=== PATIENT | female | born 2000 | race African-American/Black ===

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

== ENCOUNTER 2022-07-11 18:55 | Emergency (ER) | payer OTHER ==
[2022-07-11 18:59] VITALS: RESP 18
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
[2022-07-11 20:37] VITALS: BP 136/91; PULSE 92; TEMP 97.9
== END 2022-07-11 20:37 | disposition home or self-care (01) ==
LOC: EC 18:55
DX: R04.0 Epistaxis (principal); F32.A Depression, unspecified; F41.9 Anxiety disorder, unspecified; Z79.899 Other long term (current) drug therapy; W51.XXXA Accidental striking against or bumped into by another person, initial encounter
CPT/HCPCS: 99283

== ENCOUNTER 2023-04-16 16:12 | Emergency (ER) | payer OTHER ==
--- NOTE | 2023-04-16 16:31 | ED ---
General Adult HPI - General Source: patient, RN notes reviewed <Rakel Ordaz - Last Filed: 04/16/23 16:41> - General Source: RN notes reviewed, old records reviewed Mode of arrival: ambulatory Limitations: no limitations - History of Present Illness -: days(s) Location: chest, back, pelvis Radiation: back Severity scale (1-10): 2 Quality: burning, stabbing Consistency: intermittent Improves with: none Worsens with: none Associated Symptoms: denies other symptoms Treatments Prior to Arrival: none <Issa Blackwood - Last Filed: 04/25/23 18:49> - General Stated complaint: Back Pain Time Seen by Provider: 04/16/23 16:30 - History of Present Illness Initial comments: Patient is a 22-year-old female presented ER with chief complaint of back pain. She states started 3 days ago and now to her mid back and into her chest. Patient also was endorsing dizziness and shortness of breath. Denies any fevers does endorse chills. No cardiac history. No urinary complaints. No trauma/injuries. (Rakel Ordaz) This is a 22-year-old female to the ER for evaluation of back pain back pain chest pain lower back pain, smoker back pain with shortness of breath cough congestion. No travel history or sick contacts and no trauma. (Issa Blackwood) - Related Data Home Medications Medication Instructions Recorded Confirmed Escitalopram Oxalate [Lexapro] 20 mg PO DAILY 07/11/22 07/11/22 hydrOXYzine HCL [Hydroxyzine HCl] 10 mg PO BID 07/11/22 07/11/22 Allergies Allergy/AdvReac Type Severity Reaction Status Date / Time ibuprofen [From Motrin] Allergy Nausea & Verified 04/16/23 16:42 Vomiting Review of Systems ROS Other: All systems not noted in ROS Statement are negative. <Rakel Ordaz - Last Filed: 04/16/23 16:41> ROS Other: All systems not noted in ROS Statement are negative. <Issa Blackwood - Last Filed: 04/25/23 18:49> ROS Statement: Those systems with pertinent positive or pertinent negative responses have been documented in the HPI. Past Medical History Additional Past Medical History / Comment(s): pcos History of Any Multi-Drug Resistant Organisms: None Reported Additional Past Surgical History / Comment(s): wrist - cyst removed Past Psychological History: Anxiety, Depression Smoking Status: Never smoker Past Alcohol Use History: None Reported Past Drug Use History: None Reported <Rakel Ordaz - Last Filed: 04/16/23 16:41> General Exam <Rakel Ordaz - Last Filed: 04/16/23 16:41> General appearance: alert, in no apparent distress Head exam: Present: atraumatic, normocephalic, normal inspection Eye exam: Present: normal appearance, PERRL, EOMI. Absent: scleral icterus, conjunctival injection, periorbital swelling ENT exam: Present: normal exam, mucous membranes moist Neck exam: Present: normal inspection. Absent: tenderness, meningismus, lymph adenopathy Respiratory exam: Present: normal lung sounds bilaterally. Absent: respiratory distress, wheezes, rales, rhonchi, stridor Cardiovascular Exam: Present: regular rate, normal rhythm, normal heart sounds. Absent: systolic murmur, diastolic murmur, rubs, gallop, clicks GI/Abdominal exam: Present: soft, normal bowel sounds. Absent: distended, tenderness, guarding, rebound, rigid Extremities exam: Present: normal inspection, full ROM, normal capillary refill. Absent: tenderness, pedal edema, joint swelling, calf tenderness Back exam: Present: normal inspection Neurological exam: Present: alert, oriented X3, CN II-XII intact Psychiatric exam: Present: normal affect, normal mood Skin exam: Present: warm, dry, intact, normal color. Absent: rash <Issa Blackwood - Last Filed: 04/25/23 18:49> - General Exam Comments Initial Comments: Visual Physical Exam Vital signs reviewed General: Well-appearing, nontoxic, no acute distress. Head: Normocephalic, atraumatic Eyes: PERRLA, EOMI ENT: Airway patent Chest: Nonlabored breathing Skin: No visual rash, normal skin tone Neuro: Alert and oriented 3 Musculoskeletal: No gross abnormalities (Rakel Ordaz) Course <Issa Blackwood - Last Filed: 04/25/23 18:49> Vital Signs 04/16/23 16:38 Temperature 99.0 F Pulse Rate 86 Respiratory 16 Rate Blood Pressure 130/69 O2 Sat by Pulse 100 Oximetry - Reevaluation(s) Reevaluation #1: Medical records reviewed (Issa Blackwood) Reevaluation #2: Patient symptoms unchanged (Issa Blackwood) Reevaluation #3: Patient informed of results and questions answered (Issa Blackwood) Reevaluation #4: Was pt. sent in by a medical professional or institution (, SOFIYA, HANDBAG STITCHER, urgent care, hospital, or assisted...) When possible be specific @ -no Did you speak to anyone other than the patient for history (EMS, parent, family, police, friend...)? What history was obtained from this source @ -no Did you review nursing and triage notes (agree or disagree)? Why? @ -agree Are old charts reviewed (outside hosp., previous admission, EMS record, old EKG, old radiological studies, urgent care reports/EKG's, assisted records)? Report findings @ -yes Differential Diagnosis (chest pain, altered mental status, abdominal pain women, abdominal pain men, vaginal bleeding, weakness, fever, dyspnea, syncope, headache, dizziness, GI bleed, back pain, seizure, CVA, palpatations, mental health, musculoskeletal)? @ -prior EKG interpreted by me (3pts min.). @ -yes X-rays interpreted by me (1pt min.). @ -yes negative for acute disease CT interpreted by me (1pt min.). @ -no U/S interpreted by me (1pt. min.). @ -no What testing was considered but not performed or refused? (CT, X-rays, U/S, labs)? Why? @ -none What meds were considered but not given or refused? Why? @ -none Did you discuss the management of the patient with other professionals (professionals i.e. , SOFIYA, HANDBAG STITCHER, lab, RT, psych nurse, psych social worker, front desk person, teacher, chief operating officer, case packer and sealer)? Give summary @ -no Was smoking cessation discussed for >3mins.? @ -no Was critical care preformed (if so, how long)? @ -no Were there social determinants of health that impacted care today? How? (Homelessness, low income, unemployed, alcoholism, drug addiction, transportation, low edu. Level, literacy, decrease access to med. care, group home, rehab)? @ -none Was there de-escalation of care discussed even if they declined (Discuss DNR or withdrawal of care, Hospice)? DNR status @ -no What co-morbidities impacted this encounter? (DM, HTN, Smoking, COPD, CAD, Cancer, CVA, ARF, Chemo, Hep., AIDS, mental health diagnosis, sleep apnea, morbid obesity)? @ -none Was patient admitted / discharged? Hospital course, mention meds given and route, prescriptions, significant lab abnormalities, going to OR and other pertinent info. @ - 22 female to ER for evaluation of back pain acute back pain but no cause found. Patient's pain is improved and can be discharged home Discharge Undiagnosed new problem with uncertain prognosis? @ -no Drug Therapy requiring intensive monitoring for toxicity (Heparin, Nitro, Insulin, Cardizem)? @ -no Were any procedures done? @ -no Diagnosis/symptom? @ -Back pain mechanical Acute, or Chronic, or Acute on Chronic? @ -Acute Uncomplicated (without systemic symptoms) or Complicated (systemic symptoms)? @ -Complicated Side effects of treatment? @ -no Exacerbation, Progression, or Severe Exacerbation? @ -exacerbation Poses a threat to life or bodily function? How? (Chest pain, [place], [place], pneumonia, PE, COPD, DKA, ARF, appy, cholecystitis, CVA, Diverticulitis, Homicidal, Suicidal, threat to staff... and all critical care pts) @ -no (Issa Blackwood) Reevaluation #5: Differential Back Pain: Strain, zoster, cauda equina syndrome, epidural abscess, vertebral oste omyelitis, discitis, fracture, subluxation, disc herniation, DJD, spinal stenosis, dissection, AAA, pancreatitis, peptic ulcer disease, pyelonephritis, kidney stone, this is not meant to be an all-inclusive list. (Issa Blackwood) EKG Findings - EKG Comments: EKG Findings:: EKG is sinus 81 PA 136 QRS 32 QTc 399 - EKG Results: EKG: interpreted by ERMD <Issa Blackwood - Last Filed: 04/25/23 18:49> Medical Decision Making <Rakel Ordaz - Last Filed: 04/16/23 16:41> - Radiology Data Radiology results: report reviewed (Chest x-ray is negative for acute disease), image reviewed <Issa Blackwood - Last Filed: 04/25/23 18:49> - Medical Decision Making I performed the quick note portion of the chart. Electronically signed by Rakel Ordaz PA-C (Rakel Ordaz) 22 female to ER for evaluation of back pain acute back pain but no cause found. Patient's pain is improved and can be discharged home (Issa Blackwood) - Lab Data Lab Results 04/16/23 04/16/23 04/16/23 Range/Units 16:44 16:44 16:45 Urine Color Red Urine Appearance Cloudy H (Clear) Urine RBC >182 H (0-5) /hpf Urine HCG, Qual Not Detected (Not Detectd) Influenza Type A (PCR) Not Detected (Not Detectd) Influenza Type B (PCR) Not Detected (Not Detectd) RSV (PCR) Not Detected (Not Detectd) SARS-CoV-2 (PCR) Not Detected (Not Detectd) Disposition <Rakel Ordaz - Last Filed: 04/16/23 16:41> Is patient prescribed a controlled substance at d/c from ED?: No Time of Disposition: 20:15 <Issa Blackwood - Last Filed: 04/25/23 18:49> Clinical Impression: Strain of lumbar region, Mid back pain, Mechanical back pain Disposition: HOME SELF-CARE Condition: Good Instructions (If sedation given, give patient instructions): Acute Low Back Pain (ED) Referrals: Elidia Basilio MD [Primary Care Provider] - 1-2 days
[2023-04-16 17:04] VITALS: BP 130/69; PULSE 86; RESP 16; TEMP 99
--- NOTE | 2023-04-16 17:23 | XR ---
EXAMINATION TYPE: XR chest 2V DATE OF EXAM: 04/16/2023 5:01 PM CLINICAL INDICATION:Female, 22 years old with history of chest pain; [facility] COMPARISON: Chest radiographs from 09/21/2018. TECHNIQUE: XR chest 2V Frontal and lateral views of the chest. FINDINGS: Lungs/Pleura: There is no evidence of pleural effusion, focal consolidation, or pneumothorax. Pulmonary vascularity: Unremarkable. Heart/mediastinum: Cardiomediastinal silhouette is unremarkable. Musculoskeletal: No acute osseous pathology. Other findings: None IMPRESSION: No acute cardiopulmonary disease/process.
[2023-04-16] MEDS: traMADol 50 MG TAB PO STA (20:41)
[2023-04-16] MEDS: traMADol 50 MG STARTER PACK 3 TAB BTL PO STA (20:42)
[2023-04-16] MEDS: KETOROLAC 15 MG/ML 1 ML VIAL IM STA (20:44)
[2023-04-16 20:56] LABS: Appearance,Urine Cloudy (Clear); Color,Urine Red
[2023-04-16 21:33] LABS: RBC,Urine >182 /hpf (0-5)
== END 2023-04-16 20:53 | disposition home or self-care (01) ==
LOC: EC 16:12
DX: S39.012A Strain of muscle, fascia and tendon of lower back, initial encounter (principal); M54.6 Pain in thoracic spine; F32.A Depression, unspecified; F41.9 Anxiety disorder, unspecified; Z20.822 Contact with and (suspected) exposure to COVID-19; Z88.6 Allergy status to analgesic agent; Z79.899 Other long term (current) drug therapy; X58.XXXA Exposure to other specified factors, initial encounter
CPT/HCPCS: 93005; 81001; 81025; 87636; 71046; 99284; 96372; J1885

== ENCOUNTER 2023-06-01 18:39 | Inpatient (IN) | payer OTHER ==
[2023-06-01] MEDS ORDERED: VANCOMYCIN IV PER PHARMACY 1 EACH MISC MISCELLANE PRN (19:05)
--- NOTE | 2023-06-01 19:05 | ED ---
Skin/Abscess/FB HPI - General Chief complaint: Back Pain/Injury Stated complaint: Back Pain Time Seen by Provider: 06/01/23 18:50 Source: patient, EMS, RN notes reviewed, old records reviewed Mode of arrival: EMS Limitations: no limitations - History of Present Illness Initial comments: This is a 22-year-old female to the ER for evaluation today. Patient notes today for severe back pain left-sided back pain and severe tenderness, patient's pain has been increasing for a few days now with a low fever. Patient does have polycystic ovarian syndrome no diabetes. No prior history of injury, no medical history and takes no medications MD complaint: rash, abscess/boil -: days(s) Tetanus Up to Date: yes Location: back Severity: moderate Severity scale (1-10): 7 Quality: sharp Consistency: constant Improves with: none Worsens with: none Treatments Prior to Arrival: none - Related Data Home Medications Medication Instructions Recorded Confirmed Acetaminophen Tab [Tylenol Tab] 1,000 mg PO Q6HR PRN 06/01/23 06/01/23 Acetaminophen/Pamabrom [Midol 1 - 2 tab PO Q6H PRN 06/01/23 06/01/23 Caplet] Sertraline [Zoloft] 50 mg PO HS 06/01/23 06/01/23 metFORMIN HCL [Glucophage] 500 mg PO BID 06/01/23 06/01/23 Allergies Allergy/AdvReac Type Severity Reaction Status Date / Time ibuprofen [From Motrin] AdvReac Nausea & Verified 06/01/23 19:45 Vomiting Review of Systems ROS Statement: Those systems with pertinent positive or pertinent negative responses have been documented in the HPI. ROS Other: All systems not noted in ROS Statement are negative. Past Medical History Past Medical History: Renal Disease, Thyroid Disorder Additional Past Medical History / Comment(s): pcos, hypothyroid History of Any Multi-Drug Resistant Organisms: None Reported Additional Past Surgical History / Comment(s): wrist - cyst removed Past Psychological History: Anxiety, Depression Smoking Status: Never smoker Past Alcohol Use History: None Reported Past Drug Use History: None Reported General Exam Limitations: no limitations General appearance: alert, in no apparent distress Head exam: Present: atraumatic, normocephalic, normal inspection Eye exam: Present: normal appearance, PERRL, EOMI. Absent: scleral icterus, conjunctival injection, periorbital swelling ENT exam: Present: normal exam, mucous membranes moist Neck exam: Present: normal inspection. Absent: tenderness, meningismus, lymphadenopathy Respiratory exam: Present: normal lung sounds bilaterally. Absent: respiratory distress, wheezes, rales, rhonchi, stridor Cardiovascular Exam: Present: regular rate, normal rhythm, normal heart sounds. Absent: systolic murmur, diastolic murmur, rubs, gallop, clicks GI/Abdominal exam: Present: soft, normal bowel sounds. Absent: distended, tenderness, guarding, rebound, rigid Extremities exam: Present: normal inspection, full ROM, normal capillary refill. Absent: tenderness, pedal edema, joint swelling, calf tenderness Back exam: Present: normal inspection Neurological exam: Present: alert, oriented X3, CN II-XII intact Psychiatric exam: Present: normal affect, normal mood Skin exam: Present: warm, dry, intact, normal color. Absent: rash Course Vital Signs 06/01/23 06/01/23 06/01/23 18:40 21:31 22:30 Temperature 98.9 F Pulse Rate 94 90 109 H Respiratory 18 18 18 Rate Blood Pressure 134/80 112/68 128/69 O2 Sat by Pulse 100 94 L 96 Oximetry 06/02/23 06/02/23 06/02/23 02:31 04:35 06:12 Temperature Pulse Rate 91 103 H 107 H Respiratory 16 16 18 Rate Blood Pressure 119/82 112/66 119/80 O2 Sat by Pulse 97 99 98 Oximetry 06/02/23 06/02/23 06/02/23 07:37 07:40 07:50 Temperature Pulse Rate 100 Respiratory 16 Rate Blood Pressure 101/88 131/81 131/81 O2 Sat by Pulse 100 99 94 L Oximetry - Reevaluation(s) Reevaluation #1: 06/01/23 19:24 Medical record is reviewed Reevaluation #2: 06/01/23 19:25 Patient symptoms are improved Reevaluation #3: 06/01/23 19:25 Patient informed of results and questions answered Reevaluation #4: Was pt. sent in by a medical professional or institution (, PA, COAL TRIMMER, urgent care, hospital, or [facility]...) When possible be specific @ -no Did you speak to anyone other than the patient for history (EMS, parent, family, police, friend...)? What history was obtained from this source @ -no Did you review nursing and triage notes (agree or disagree)? Why? @ -agree Are old charts reviewed (outside hosp., previous admission, EMS record, old EKG, old radiological studies, urgent care reports/EKG's, [facility] records)? Report findings @ -yes Differential Diagnosis (chest pain, altered mental status, abdominal pain women, abdominal pain men, vaginal bleeding, weakness, fever, dyspnea, syncope, headache, dizziness, GI bleed, back pain, seizure, CVA, palpatations, mental health, musculoskeletal)? @ -prior EKG interpreted by me (3pts min.). @ -no X-rays interpreted by me (1pt min.). @ -no CT interpreted by me (1pt min.). @ -Yes back cellulitis with significant developing abscess U/S interpreted by me (1pt. min.). @ -no What testing was considered but not performed or refused? (CT, X-rays, U/S, labs)? Why? @ -none What meds were considered but not given or refused? Why? @ -none Did you discuss the management of the patient with other professionals (professionals i.e. , PA, COAL TRIMMER, lab, RT, psych nurse, social service technician, highway inspector, teacher, space operations officer, welfare case worker)? Give summary @ -no Was smoking cessation discussed for >3mins.? @ -no Was critical care preformed (if so, how long)? @ -no Were there social determinants of health that impacted care today? How? (Homelessness, low income, unemployed, alcoholism, drug addiction, transportation, low edu. Level, literacy, decrease access to med. care, retirement, rehab)? @ -none Was there de-escalation of care discussed even if they declined (Discuss DNR or withdrawal of care, Hospice)? DNR status @ -no What co-morbidities impacted this encounter? (DM, HTN, Smoking, COPD, CAD, Cancer, CVA, ARF, Chemo, Hep., AIDS, mental health diagnosis, sleep apnea, morbid obesity)? @ -none Was patient admitted / discharged? Hospital course, mention meds given and route, prescriptions, significant lab abnormalities, going to OR and other pertinent info. @ - 22 female with significant back abscess, significant back cellulitis. Patient will need to be admitted for IV antibiotics and surgical evaluation regarding developing abscess Admitted Undiagnosed new problem with uncertain prognosis? @ -no Drug Therapy requiring intensive monitoring for toxicity (Heparin, Nitro, Insulin, Cardizem)? @ -no Were any procedures done? @ -no Diagnosis/symptom? @ -Back cellulitis significant with developing abscess Acute, or Chronic, or Acute on Chronic? @ -Acute Uncomplicated (without systemic symptoms) or Complicated (systemic symptoms)? @ -Complicated Side effects of treatment? @ -no Exacerbation, Progression, or Severe Exacerbation? @ -exacerbation Poses a threat to life or bodily function? How? (Chest pain, [place], [place], pneumonia, PE, COPD, DKA, ARF, appy, cholecystitis, CVA, Diverticulitis, Homicidal, Suicidal, threat to staff... and all critical care pts) @ -yes with significant infection Reevaluation #5: Differential Back Pain: Strain, zoster, cauda equina syndrome, epidural abscess, vertebral osteomyelitis, discitis, fracture, subluxation, disc herniation, DJD, spinal stenosis, dissection, AAA, pancreatitis, peptic ulcer disease, pyelonephritis, kidney stone, this is not meant to be an all-inclusive list. - Consultations Consultation #1: Spoke with [facility] who agreed to admit this patient Medical Decision Making - Medical Decision Making 22 female with significant back abscess, significant back cellulitis. With significant developing abscess around the area of cellulitis and pain - Lab Data Result diagrams: 06/05/23 05:50 06/05/23 05:50 Lab Results 06/01/23 06/01/23 06/01/23 Range/Units 19:24 19:24 19:24 WBC 8.9 (4.0-11.0) k/uL RBC 5.16 (3.80-5.40) m/uL Hgb 11.1 L (11.4-16.0) gm/dL Hct 35.6 (34.0-46.0) % MCV 68.9 L (80.0-100.0) fL MCH 21.4 L (25.0-35.0) pg MCHC 31.1 (31.0-37.0) g/dL RDW 14.6 (11.5-15.5) % Plt Count 377 (150-450) k/uL MPV 6.6 Neutrophils % 75 % Lymphocytes % 18 % Monocytes % 4 % Eosinophils % 2 % Basophils % 0 % Neutrophils # 6.7 (1.3-7.7) k/uL Lymphocytes # 1.6 (1.0-4.8) k/uL Monocytes # 0.3 (0-1.0) k/uL Eosinophils # 0.2 (0-0.7) k/uL Basophils # 0.0 (0-0.2) k/uL Microcytosis Marked Sodium 137 (137-145) mmol/L Potassium 4.0 (3.5-5.1) mmol/L Chloride 105 (98-107) mmol/L Carbon Dioxide 25 (22-30) mmol/L Anion Gap 7 mmol/L BUN 8 (7-17) mg/dL Creatinine 0.59 (0.52-1.04) mg/dL Est GFR (CKD-EPI)AfAm >90 (>60 ml/min/1.73 sqM) Est GFR (CKD-EPI)NonAf >90 (>60 ml/min/1.73 sqM) Glucose 95 (74-99) mg/dL Plasma Lactic Acid Konstantin 1.1 (0.7-2.0) mmol/L Calcium 9.2 (8.4-10.2) mg/dL Phosphorus 3.5 (2.5-4.5) mg/dL Magnesium 1.5 L (1.6-2.3) mg/dL Total Bilirubin 0.7 (0.2-1.3) mg/dL AST 18 (14-36) U/L ALT 22 (4-34) U/L Alkaline Phosphatase 90 (38-126) U/L Total Protein 7.0 (6.3-8.2) g/dL Albumin 3.8 (3.5-5.0) g/dL - Radiology Data Radiology results: report reviewed (CT abdpelvis positive for cellulitis w abscess), image reviewed Disposition Clinical Impression: Mid back pain, Cellulitis of back, Back abscess Disposition: ADMITTED IP TO THIS [facility] Condition: Fair Is patient prescribed a controlled substance at d/c from ED?: No
[2023-06-01 19:55] LABS: Basophils % (A) 0 %; Eosinophils # (A) 0.2 k/uL (0-0.7); Eosinophils % (A) 2 %; HCT 35.6 % (34.0-46.0); HGB 11.1 gm/dL (11.4-16.0); Lymphocytes # (A) 1.6 k/uL (1.0-4.8); Lymphocytes % (A) 18 %; MCH 21.4 pg (25.0-35.0); MCHC 31.1 g/dL (31.0-37.0); MCV 68.9 fL (80.0-100.0); Mean Platelet Volume 6.6; Microcytosis Marked; Monocytes # (A) 0.3 k/uL (0-1.0); Monocytes % (A) 4 %; Neutrophils # (A) 6.7 k/uL (1.3-7.7); Neutrophils % (A) 75 %; Platelet Count 377 k/uL (150-450); RBC 5.16 m/uL (3.80-5.40); RDW 14.6 % (11.5-15.5); WBC 8.9 k/uL (4.0-11.0)
[2023-06-01 20:08] LABS: ALT 22 U/L (4-34); AST 18 U/L (14-36); African American GFR (CKD) >90 (>60 ml/min/1.73 sqM); Albumin 3.8 g/dL (3.5-5.0); Alkaline Phosphatase 90 U/L (38-126); Anion Gap 7 mmol/L; Blood Urea Nitrogen 8 mg/dL (7-17); Calcium 9.2 mg/dL (8.4-10.2); Carbon Dioxide 25 mmol/L (22-30); Chloride 105 mmol/L (98-107); Glucose 95 mg/dL (74-99); Magnesium 1.5 mg/dL (1.6-2.3); Non-African American GFR(CKD) >90 (>60 ml/min/1.73 sqM); Phosphorus 3.5 mg/dL (2.5-4.5); Sodium 137 mmol/L (137-145); Total Bilirubin 0.7 mg/dL (0.2-1.3)
[2023-06-01] MEDS: SODIUM CHLORIDE 0.9% 1,000 ML IV STA ×2 (20:08)
--- NOTE | 2023-06-01 21:26 | CT ---
EXAMINATION TYPE: CT abdomen pelvis w con CT DLP: 2354.1 mGycm, Automated exposure control for dose reduction was used. DATE OF EXAM: 06/01/2023 8:41 PM COMPARISON: None. CLINICAL INDICATION:Female, 22 years old with history of pain; WOUND ON LEFT LATERAL SIDE TECHNIQUE: Axial CT of the abdomen and pelvis. Sagittal and coronal reformats were created on a [employer]uklik workstation. Contrast used:100ml mL of Isovue 300 with IV Contrast, (none if empty) Oral contrast used: without Oral Contrast (none if empty) FINDINGS: LOWER CHEST: Clear lung bases. Heart size upper normal. ABDOMEN LIVER: Unremarkable GALLBLADDER AND BILE DUCTS: A 1.2 cm calcified gallstone. No gallbladder distention or inflammation. Nondilated biliary tree. PANCREAS: Unremarkable. SPLEEN: Unremarkable. ADRENAL GLANDS: Unremarkable. KIDNEYS AND URETERS: Kidneys enhance symmetrically. No evidence of hydronephrosis or visible renal ca lculus. The ureters are unremarkable. PELVIS BLADDER: Unremarkable REPRODUCTIVE: Uterus and presumed ovaries appear unremarkable by CT. Uterus is anteflexed and deviate s slightly into the left pelvis. ABDOMEN & PELVIS STOMACH AND BOWEL: Stomach and small bowel are nondistended, no evidence of obstruction. Normal pita endix. [id number] stool throughout the colon without acute process seen. PERITONEUM/RETROPERITONEUM: No evidence of pneumoperitoneum or free fluid. VASCULATURE: Aorta and major branches are grossly unremarkable. No AAA. Portal vein and tributaries appear enhancing. LYMPH NODES: No enlarged lymph nodes. SOFT TISSUE/ABDOMINAL WALL: In the left inferior chest posterolaterally, there is skin induration sug gesting cellulitis, with mild underlying subcutaneous fat stranding and a focal 7.6 x 3.8 cm axial by 3.1 cm craniocaudal structure which appears relatively homogeneous and shows higher than simple flui d attenuation contents, about 23 Hounsfield units. No visible gas is evident. Small broad-based fat c ontaining umbilical region hernia. MUSCULOSKELETAL: Osseous structures are unremarkable. IMPRESSION: * In the left inferior chest wall posterolaterally, findings suggest edema and cellulitis with a sub cutaneous 7.6 x 3.8x 3.1 cm structure suggestive of phlegmon or liquefying abscess. * Cholelithiasis.
[2023-06-01] MEDS ORDERED: ONDANSETRON 4 MG/2 ML VIAL IVP PRN (21:28)
[2023-06-01] MEDS ORDERED: NALOXONE 0.4 MG/ML 1 ML VIAL IV PRN (21:28)
[2023-06-01] MEDS: HYDROmorphone 1 MG/ML 1 ML SYRINGE IVP PRN (22:23)
[2023-06-01] MEDS: VANCOMYCIN 2,000 MG in SODIUM CHLORIDE 0.9% 500 ML 500 ML IVPB ONE (22:26)
[2023-06-02] MEDS: SODIUM CHLORIDE 0.9% 1,000 ML IV SCH (00:52)
[2023-06-02] MEDS ORDERED: DEXTROSE 50% SYRINGE 50 ML IVP PRN ×2 (04:07)
[2023-06-02 04:40] LABS: Glucose,Whole Blood 98 mg/dL (70-110)
[2023-06-02] MEDS: VANCOMYCIN 2,000 MG in SODIUM CHLORIDE 0.9% 500 ML 500 ML IVPB SCH (06:45)
[2023-06-02] MEDS: INSULIN ASPART (NovoLOG) 100 UNIT/ML VIAL SQ SCH (07:22)
[2023-06-02 08:47] LABS: Basophils % (A) 0 %; Eosinophils % (A) 0 %; HCT 36.1 % (34.0-46.0); HGB 10.7 gm/dL (11.4-16.0); Hypochromasia Marked; Lymphocytes # (A) 1.5 k/uL (1.0-4.8); Lymphocytes % (A) 16 %; MCH 21.3 pg (25.0-35.0); MCHC 29.6 g/dL (31.0-37.0); MCV 71.8 fL (80.0-100.0); Mean Platelet Volume 6.9; Microcytosis Moderate; Monocytes # (A) 0.5 k/uL (0-1.0); Monocytes % (A) 5 %; Neutrophils # (A) 7.2 k/uL (1.3-7.7); Neutrophils % (A) 77 %; Platelet Count 363 k/uL (150-450); RBC 5.03 m/uL (3.80-5.40); RDW 14.4 % (11.5-15.5); WBC 9.4 k/uL (4.0-11.0)
[2023-06-02] MEDS: PANTOPRAZOLE 40 MG/10 ML VIAL IVP SCH (08:54)
[2023-06-02 09:14] LABS: ALT 20 U/L (4-34); AST 17 U/L (14-36); African American GFR (CKD) >90 (>60 ml/min/1.73 sqM); Albumin 3.5 g/dL (3.5-5.0); Alkaline Phosphatase 84 U/L (38-126); Anion Gap 10 mmol/L; Blood Urea Nitrogen 7 mg/dL (7-17); Calcium 8.7 mg/dL (8.4-10.2); Carbon Dioxide 20 mmol/L (22-30); Chloride 105 mmol/L (98-107); Glucose 96 mg/dL (74-99); Magnesium 1.6 mg/dL (1.6-2.3); Non-African American GFR(CKD) >90 (>60 ml/min/1.73 sqM); Phosphorus 3.6 mg/dL (2.5-4.5); Sodium 135 mmol/L (137-145); Total Bilirubin 0.6 mg/dL (0.2-1.3); Total Protein 6.5 g/dL (6.3-8.2)
--- NOTE | 2023-06-02 10:30 | P.HPIM ---
History of Present Illness this is a pleasant 22 years old -[place] female with no significant past medical history. Presents because of skin lesion in the left lower back started since last Wednesday about 3-4 days ago, as per patient is started on small area and slowly get bigger it's painful with pain radiating to her lower extremity, she rates the pain at 9/10 and shooting pain increased by movement Associated with mild headache and dizziness but no weakness or numbness No change in urine or bowel habits, no diarrhea vomiting or abdominal pain. No dysuria or urgency. No weakness or numbness. Patient denies trauma, no buttock bites as per patient. Patient denies to me any previous history of IV drug abuse, any other substance abuse. She denies smoking alcohol as well. Patient is afebrile and other labs look stable.she is moderately tachycardic ago around 100 100s and 7 Hemoglobin is 10.7 and WBC 9.4 BMP and liver enzymes were unremarkable HCG is not detected. Patient has CT of the abdomen and pelvis on left chest wall abscess 7.63.83.1 cm with surrounding cellulitis Patient started on IV vancomycin and normal saline 75 mL/h She was admitted for surgery team consult Review of Systems Review of systems CONSTITUTIONAL: No fever, no malaise, no fatigue. HEENT: No recent visual problems or hearing problems. Denied any sore throat. CARDIOVASCULAR: No orthopnea, PND, no palpitations, no syncope. PULMONARY: No shortness of breath, no cough, no hemoptysis. GASTROINTESTINAL: No diarrhea, no nausea, no vomiting, no abdominal pain. Normoactive bowel sounds. NEUROLOGICAL: No headaches, no weakness, no numbness. HEMATOLOGICAL: Denies any bleeding or petechiae. GENITOURINARY: Denies any burning micturition, frequency, or urgency. MUSCULOSKELETAL/RHEUMATOLOGICAL: Denies any joint pain, swelling, or any muscle pain. ENDOCRINE: Denies any polyuria or polydipsia. Past Medical History Past Medical History: Renal Disease, Thyroid Disorder Additional Past Medical History / Comment(s): pcos, hypothyroid History of Any Multi-Drug Resistant Organisms: None Reported Additional Past Surgical History / Comment(s): wrist - cyst removed Past Psychological History: Anxiety, Depression Smoking Status: Never smoker Past Alcohol Use History: None Reported Past Drug Use History: None Reported Medications and Allergies Home Medications Medication Instructions Recorded Confirmed Type Acetaminophen Tab [Tylenol Tab] 1,000 mg PO Q6HR PRN 06/01/23 06/01/23 History Acetaminophen/Pamabrom [Midol 1 - 2 tab PO Q6H PRN 06/01/23 06/01/23 History Caplet] Sertraline [Zoloft] 50 mg PO HS 06/01/23 06/01/23 History metFORMIN HCL [Glucophage] 500 mg PO BID 06/01/23 06/01/23 History Allergies Allergy/AdvReac Type Severity Reaction Status Date / Time ibuprofen [From Motrin] AdvReac Nausea & Verified 06/01/23 19:45 Vomiting Physical Exam Vitals: Vital Signs Temp Pulse Resp BP Pulse Ox 06/02/23 07:50 100 16 131/81 94 L 06/02/23 07:40 131/81 99 06/02/23 07:37 101/88 100 06/02/23 06:12 107 H 18 119/80 98 06/02/23 04:35 103 H 16 112/66 99 06/02/23 02:31 91 16 119/82 97 06/01/23 22:30 109 H 18 128/69 96 06/01/23 21:31 90 18 112/68 94 L 06/01/23 18:40 98.9 F 94 18 134/80 100 Intake and Output 06/01/23 06/02/23 06/02/23 22:59 06:59 14:59 Other: Weight 133.81 kg -GENERAL: The patient is alert and oriented x3, not in any acute distress. obese. HEENT: Pupils are round and equally reacting to light. EOMI. No scleral icterus. No conjunctival pallor. Normocephalic, atraumatic. No pharyngeal erythema. No thyromegaly. CARDIOVASCULAR: S1 and S2 present. No murmurs, rubs, or gallops. -PULMONARY: Chest is clear to auscultation, no wheezing , no crackles. left lower chest wall abscess with surrounding cellulitis ABDOMEN: Soft, nontender, nondistended, normoactive bowel sounds. No palpable organomegaly. MUSCULOSKELETAL: No joint swelling or deformity. EXTREMITIES: No cyanosis, clubbing, or pedal edema. NEUROLOGICAL: Gross neurological examination did not reveal any focal deficits. SKIN: No rashes. no petechiae. Results CBC & Chem 7: 06/02/23 07:57 06/02/23 07:57 Labs: Abnormal Lab Results - Last 24 Hours (Table) 06/01/23 06/01/23 06/02/23 Range/Units 19:24 19:24 07:57 Hgb 11.1 L 10.7 L (11.4-16.0) gm/dL MCV 68.9 L 71.8 L (80.0-100.0) fL MCH 21.4 L 21.3 L (25.0-35.0) pg MCHC 29.6 L (31.0-37.0) g/dL Sodium (137-145) mmol/L Carbon Dioxide (22-30) mmol/L Magnesium 1.5 L (1.6-2.3) mg/dL 06/02/23 Range/Units 07:57 Hgb (11.4-16.0) gm/dL MCV (80.0-100.0) fL MCH (25.0-35.0) pg MCHC (31.0-37.0) g/dL Sodium 135 L (137-145) mmol/L Carbon Dioxide 20 L (22-30) mmol/L Magnesium (1.6-2.3) mg/dL Assessment and Plan Assessment: left lowerChest wall abscess posteriorly with surrounding soft tissue cellulitis Obesity Plan: continue with IV vancomycin Continue with normal saline Surgery team consult Pain management Follow-up culture results Labs and medication were reviewed.. Continue same treatment. Continue with symptomatic treatment. Resume home medication. Monitor labs and vitals. DVT and GI prophylaxis. Further recommendations as per clinical course of the patient DVT prophylaxis: Subcutaneous heparin GI Prophylaxis: Pepcid
[2023-06-02 12:01] LABS: Glucose,Whole Blood 89 mg/dL (70-110)
--- NOTE | 2023-06-02 13:44 | P.GSCN ---
History of Present Illness Consult date: 06/02/23 History of present illness: CHIEF COMPLAINT: Back pain HISTORY OF PRESENT ILLNESS: This is a 22-year-old female who presented with left-sided back pain x 3 days. Patient reported swelling and increased tenderness. She denies any drainage from the area. Denies any prior history of abscesses. Denies any diabetes history. She had a CT scan of the abdomen and pelvis that had shown left inferior chest wall posterior laterally findings suggestive of edema and cellulitis with subcutaneous 7.6 x 3.8 x 3.1 cm structure suggestive of phlegmon or liquefying abscess. Patient is mildly tachycardic. PAST MEDICAL HISTORY: Renal Disease, Thyroid Disorder, polycystic ovarian syndrome, anxiety and depression PAST SURGICAL HISTORY: See below MEDICATIONS: See below ALLERGIES: See below SOCIAL HISTORY: No illicit drug use. REVIEW OF SYSTEMS: CONSTITUTIONAL: Denies fever or chills. HEENT: Denies blurred vision, vision changes, or eye pain. Denies hemoptysis CARDIOVASCULAR: Denies chest pain or pressure. RESPIRATORY: No shortness of breath. GASTROINTESTINAL: See HPI for pertinent findings HEMATOLOGIC: Denies bleeding disorders. GENITOURINARY: Denies any blood in urine or increased urinary frequency. SKIN: Denies pruitis. Denies rash. PHYSICAL EXAM: VITAL SIGNS: Reviewed GENERAL: Well-developed in no acute distress. ABDOMEN: Soft. Obese. Nondistended. Nontender NEUROLOGIC: Alert and oriented. Cranial nerves II through XII grossly intact. Skin: Left side of back at skin fold with evidence of induration erythema and a small area of crusting. No active drainage at this time. Area is tender with palpation. LABORATORY DATA: WBC 9.4 Hgb 10.7 platelets 363 Sodium is 135 potassium 4.0 creatinine 0.54 Magnesium 1.6 Lactic acid 1.1 IMAGING: CT scan abdomen pelvis in the left inferior chest wall posterolaterally findings shows edema and cellulitis with a subcutaneous 7.6 x 3.8 x 3.1 cm structure suggestive of phlegmon or liquefying abscess. Cholelithiasis. ASSESSMENT: 1. Cellulitis of the left side of back PLAN: -No surgical intervention planned -Continue antibiotics -Continue to monitor -Apply warm compresses Thank you for this consultation Physician Towboat Engineer note has been reviewed by physician. Signing provider agrees with the documented findings, assessment, and plan of care. Past Medical History Past Medical History: Renal Disease, Thyroid Disorder Additional Past Medical History / Comment(s): pcos, hypothyroid History of Any Multi-Drug Resistant Organisms: None Reported Additional Past Surgical History / Comment(s): wrist - cyst removed Past Psychological History: Anxiety, Depression Smoking Status: Never smoker Past Alcohol Use History: None Reported Past Drug Use History: None Reported Medications and Allergies Home Medications Medication Instructions Recorded Confirmed Type Acetaminophen Tab [Tylenol Tab] 1,000 mg PO Q6HR PRN 06/01/23 06/01/23 History Acetaminophen/Pamabrom [Midol 1 - 2 tab PO Q6H PRN 06/01/23 06/01/23 History Caplet] Sertraline [Zoloft] 50 mg PO HS 06/01/23 06/01/23 History metFORMIN HCL [Glucophage] 500 mg PO BID 06/01/23 06/01/23 History Allergies Allergy/AdvReac Type Severity Reaction Status Date / Time ibuprofen [From Motrin] AdvReac Nausea & Verified 06/01/23 19:45 Vomiting Surgical - Exam Vital Signs Temp Pulse Resp BP Pulse Ox 98.9 F 94 18 134/80 100 06/01/23 18:40 06/01/23 18:40 06/01/23 18:40 06/01/23 18:40 06/01/23 18:40 Results - Labs 06/02/23 07:57 06/02/23 07:57 Abnormal Lab Results - Last 24 Hours (Table) 06/01/23 06/01/23 06/02/23 Range/Units 19:24 19:24 07:57 Hgb 11.1 L 10.7 L (11.4-16.0) gm/dL MCV 68.9 L 71.8 L (80.0-100.0) fL MCH 21.4 L 21.3 L (25.0-35.0) pg MCHC 29.6 L (31.0-37.0) g/dL Sodium (137-145) mmol/L Carbon Dioxide (22-30) mmol/L Magnesium 1.5 L (1.6-2.3) mg/dL 06/02/23 Range/Units 07:57 Hgb (11.4-16.0) gm/dL MCV (80.0-100.0) fL MCH (25.0-35.0) pg MCHC (31.0-37.0) g/dL Sodium 135 L (137-145) mmol/L Carbon Dioxide 20 L (22-30) mmol/L Magnesium (1.6-2.3) mg/dL Diabetes panel 06/01/23 06/02/23 Range/Units 19: 07:57 Sodium 137 135 L (137-145) mmol/L Potassium 4.0 4.0 (3.5-5.1) mmol/L Chloride 105 105 (98-107) mmol/L Carbon Dioxide 25 20 L (22-30) mmol/L BUN 8 7 (7-17) mg/dL Creatinine 0.59 0.54 (0.52-1.04) mg/dL Glucose 95 96 (74-99) mg/dL Calcium 9.2 8.7 (8.4-10.2) mg/dL AST 18 17 (14-36) U/L ALT 22 20 (4-34) U/L Alkaline Phosphatase 90 84 (38-126) U/L Total Protein 7.0 6.5 (6.3-8.2) g/dL Albumin 3.8 3.5 (3.5-5.0) g/dL Calcium panel 06/01/23 06/02/23 Range/Units 19: 07:57 Calcium 9.2 8.7 (8.4-10.2) mg/dL Phosphorus 3.5 3.6 (2.5-4.5) mg/dL Albumin 3.8 3.5 (3.5-5.0) g/dL Pituitary panel 06/01/23 06/02/23 Range/Units 19:24 07:57 Sodium 137 135 L (137-145) mmol/L Potassium 4.0 4.0 (3.5-5.1) mmol/L Chloride 105 105 (98-107) mmol/L Carbon Dioxide 25 20 L (22-30) mmol/L BUN 8 7 (7-17) mg/dL Creatinine 0.59 0.54 (0.52-1.04) mg/dL Glucose 95 96 (74-99) mg/dL Calcium 9.2 8.7 (8.4-10.2) mg/dL Adrenal panel 06/01/23 06/02/23 Range/Units 19:24 07:57 Sodium 137 135 L (137-145) mmol/L Potassium 4.0 4.0 (3.5-5.1) mmol/L Chloride 105 105 (98-107) mmol/L Carbon Dioxide 25 20 L (22-30) mmol/L BUN 8 7 (7-17) mg/dL Creatinine 0.59 0.54 (0.52-1.04) mg/dL Glucose 95 96 (74-99) mg/dL Calcium 9.2 8.7 (8.4-10.2) mg/dL Total Bilirubin 0.7 0.6 (0.2-1.3) mg/dL AST 18 17 (14-36) U/L ALT 22 20 (4-34) U/L Alkaline Phosphatase 90 84 (38-126) U/L Total Protein 7.0 6.5 (6.3-8.2) g/dL Albumin 3.8 3.5 (3.5-5.0) g/dL
[2023-06-02 17:19] LABS: Glucose,Whole Blood 89 mg/dL (70-110)
[2023-06-02] MEDS: HEPARIN SODIUM,PORCINE 5,000 UNIT/ML 1 ML VIAL SQ SCH (20:03)
[2023-06-02] MEDS: FAMOTIDINE 20 MG/2 ML VIAL IV SCH (20:03)
[2023-06-02] MEDS: SERTRALINE 50 MG TAB PO SCH (20:04)
[2023-06-02 21:26] LABS: Glucose,Whole Blood 104 mg/dL (70-110)
[2023-06-02] MEDS: ACETAMINOPHEN TAB 500 MG TAB PO PRN (23:10)
[2023-06-02] MEDS: KETOROLAC 15 MG/ML 1 ML VIAL IVP PRN (23:11)
[2023-06-03] MEDS ORDERED: KETOROLAC 15 MG/ML 1 ML VIAL IVP SCH
[2023-06-03] MEDS: ONDANSETRON 4 MG/2 ML VIAL IVP PRN (00:37)
[2023-06-03 05:46] LABS: Glucose,Whole Blood 94 mg/dL (70-110)
--- NOTE | 2023-06-03 09:56 | P.PN ---
Subjective this is a pleasant 22 years old -[place] female with no significant past medical history. Presents because of skin lesion in the left lower back started since last Wednesday about 3-4 days ago, as per patient is started on small area and slowly get bigger it's painful with pain radiating to her lower extremity, she rates the pain at 9/10 and shooting pain increased by movement Associated with mild headache and dizziness but no weakness or numbness No change in urine or bowel habits, no diarrhea vomiting or abdominal pain. No dysuria or urgency. No weakness or numbness. Patient denies trauma, no buttock bites as per patient. Patient denies to me any previous history of IV drug abuse, any other substance abuse. She denies smoking alcohol as well. Patient is afebrile and other labs look stable.she is moderately tachycardic ago around 100 100s and 7 Hemoglobin is 10.7 and WBC 9.4 BMP and liver enzymes were unremarkable HCG is not detected. Patient has CT of the abdomen and pelvis on left chest wall abscess 7.63.83.1 cm with surrounding cellulitis Patient started on IV vancomycin and normal saline 75 mL/h She was admitted for surgery team consult 06/03/2023 Patient lower back abscess opened spontaneously today at 2 spots, there was a lot of draining of purulent material, the area looks somewhat tender to touch with surrounding cellulitis, we will send for wound culture from her purulent discharge Case was discussed with surgery team Currently she is covered with IV vancomycin and normal saline 75 mL/h She is still tachycardic but slightly better Repeat labs from today are still pending, we will follow-up Discussed with staff as well Objective - Vital Signs Vital signs: Vital Signs Temp 98.8 F 06/03/23 06:55 Pulse 79 06/03/23 06:55 Resp 16 06/03/23 06:55 BP 112/70 06/03/23 06:55 Pulse Ox 98 06/03/23 06:55 FiO2 Intake & Output 06/02/23 06/03/23 06/03/23 18:59 06:59 18:59 Intake Total 800 2021.50 Balance 800 2021.50 Intake: Intake, IV Titration 1062.50 Amount Sodium Chloride 0.9% 1, 562.50 000 ml @ 75 mls/hr IV . [id number] [facility] Rx#:[id number] Vancomycin 2,000 mg In 500 Sodium Chloride 0.9% 500 ml 500 ml @ 167 mls/hr IVPB Q8H [facility] Rx#: [id number] Oral 800 960 Other: Voiding Method Toilet Toilet # Voids 2 - Exam GENERAL: The patient is alert and oriented x3, not in any acute distress. Well developed, well nourished. HEENT: Pupils are round and equally reacting to light. EOMI. No scleral icterus. No conjunctival pallor. Normocephalic, atraumatic. No pharyngeal erythema. No thyromegaly. CARDIOVASCULAR: S1 and S2 present. No murmurs, rubs, or gallops. PULMONARY: Chest is clear to auscultation, no wheezing , no crackles. ABDOMEN: Soft, nontender, nondistended, normoactive bowel sounds. No palpable organomegaly. -MUSCULOSKELETAL: No joint swelling or deformity. Left lower back skin abscess (2 spots with purulent discharge, surrounding cellulitis EXTREMITIES: No cyanosis, clubbing, or pedal edema. NEUROLOGICAL: Gross neurological examination did not reveal any focal deficits. SKIN: No rashes. no petechiae. - Labs CBC & Chem 7: 06/02/23 07:57 06/02/23 07:57 Labs: Microbiology - Last 24 Hours (Table) 06/01/23 20:01 Blood Culture - Preliminary Blood 06/01/23 19:30 Blood Culture - Preliminary Blood Assessment and Plan Assessment: left lowerChest wall abscess posteriorly with surrounding soft tissue cellulitis Obesity Plan: continue with IV vancomycin Continue with normal saline Surgery team consult Pain management Follow-up culture results Labs and medication were reviewed.. Continue same treatment. Continue with symptomatic treatment. Resume home medication. Monitor labs and vitals. DVT and GI prophylaxis. Further recommendations as per clinical course of the patient DVT prophylaxis: Subcutaneous heparin GI Prophylaxis: Pepcid
--- NOTE | 2023-06-03 15:20 | P.PN ---
Subjective Progress Note Date: 06/03/23 CHIEF COMPLAINT: Cellulitis and phlegmonous change left back HISTORY OF PRESENT ILLNESS: Patient is now having significant amount of drainage from the left back abscess. Patient reports improvement in her pain. Afebrile. Tachycardia resolved. PHYSICAL EXAM: VITAL SIGNS: Reviewed. GENERAL: Well-developed in no acute distress. Skin: Left back between skin fold significant purulent drainage noted. Area is tender with palpation but softer than yesterday ASSESSMENT: 1. Left upper back abscess with spontaneous drainage PLAN: -Culture drainage -Continue antibiotics -Encourage patient to apply warm compresses -Encourage patient to shower -Continue pain management -Further recommendations forthcoming per surgeon Physician Landscape Foreman note has been reviewed by physician. Signing provider agrees with the documented findings, assessment, and plan of care. I have personally seen and examined the patient, reviewed the SINGLE POINTED OPERATOR /PAs history, exam and MDM and agree with the assessment and plan as written. Based on total visit time, I have performed more than 50% of the visit. As above: Patient with moderate sized left upper back abscess. Still draining but draining through a very small opening. Remains quite tender. Will plan incision and drainage tomorrow. Objective - Vital Signs Vital signs: Vital Signs Temp 98.6 F 06/03/23 14:00 Pulse 93 06/03/23 14:00 Resp 15 06/03/23 14:00 BP 121/74 06/03/23 14:00 Pulse Ox 99 06/03/23 14:00 FiO2 Intake & Output 06/02/23 06/03/23 06/03/23 18:59 06:59 18:59 Intake Total 800 2022.50 100 Balance 800 2022.50 100 Intake: Intake, IV Titration 1062.50 Amount Sodium Chloride 0.9% 1, 562.50 000 ml @ 75 mls/hr IV . [id number] [facility] Rx#:[id number] Vancomycin 2,000 mg In 500 Sodium Chloride 0.9% 500 ml 500 ml @ 167 mls/hr IVPB Q8H [facility] Rx#: [id number] Oral 800 960 100 Other: Voiding Method Toilet Toilet # Voids 2 - Labs CBC & Chem 7: 06/03/23 15:22 06/03/23 15:22 Labs: Microbiology - Last 24 Hours (Table) 06/01/23 20:01 Blood Culture - Preliminary Blood 06/01/23 19:30 Blood Culture - Preliminary Blood
[2023-06-03] MEDS: VANCOMYCIN TROUGH DUE 1 EACH MISC MISCELLANE ONE (15:28)
[2023-06-03 15:48] LABS: African American GFR (CKD) >90 (>60 ml/min/1.73 sqM); Anion Gap 4 mmol/L; Blood Urea Nitrogen 8 mg/dL (7-17); Calcium 8.5 mg/dL (8.4-10.2); Carbon Dioxide 27 mmol/L (22-30); Chloride 108 mmol/L (98-107); Glucose 93 mg/dL (74-99); Non-African American GFR(CKD) >90 (>60 ml/min/1.73 sqM); Potassium 4.4 mmol/L (3.5-5.1); Sodium 139 mmol/L (137-145)
[2023-06-03 16:03] LABS: HCT 35.1 % (34.0-46.0); HGB 10.6 gm/dL (11.4-16.0); Hypochromasia Marked; MCH 21.8 pg (25.0-35.0); MCHC 30.2 g/dL (31.0-37.0); MCV 72.3 fL (80.0-100.0); Mean Platelet Volume 6.7; Microcytosis Slight; Platelet Count 389 k/uL (150-450); RBC 4.86 m/uL (3.80-5.40); RDW 14.3 % (11.5-15.5); WBC 8.4 k/uL (4.0-11.0)
[2023-06-03 16:45] LABS: Glucose,Whole Blood 87 mg/dL (70-110)
[2023-06-03 20:02] LABS: Glucose,Whole Blood 99 mg/dL (70-110)
[2023-06-04 05:21] LABS: Glucose,Whole Blood 101 mg/dL (70-110)
[2023-06-04 06:53] LABS: African American GFR (CKD) >90 (>60 ml/min/1.73 sqM); Non-African American GFR(CKD) >90 (>60 ml/min/1.73 sqM)
[2023-06-04 08:49] LABS: HCT 32.9 % (37.2-46.3); HGB 9.9 g/dL (12.0-15.0); MCH 20.8 pg (27.0-32.0); MCHC 30.1 g/dL (32.0-37.0); MCV 69.1 FL (80.0-97.0); Mean Platelet Volume 9.2 FL (9.5-12.2); NRBC Per 100 WBC 0 X 10*3/uL (0.00-0.01); Platelet Count 414 X 10*3/uL (140-440); RBC 4.76 X 10*6/uL (4.10-5.20); RDW 15.2 % (11.5-14.5); WBC 7.33 X 10*3/uL (4.50-10.00)
[2023-06-04 09:44] LABS: Basophils # (A) 0.03 X 10*3/uL (0.00-0.10); Basophils % (A) 0.4 %; Eosinophils # (A) 0.12 X 10*3/uL (0.04-0.35); Eosinophils % (A) 1.6 %; Lymphocytes % (A) 25.9 %; Monocytes # (A) 0.52 X 10*3/uL (0.20-1.00); Monocytes % (A) 7.1 %; Neutrophils # (A) 4.74 X 10*3/uL (1.80-7.70); Neutrophils % (A) 64.7 %
[2023-06-04 11:40] LABS: Glucose,Whole Blood 94 mg/dL (70-110)
--- NOTE | 2023-06-04 13:04 | P.PN ---
Subjective Progress Note Date: 06/04/23 this is a pleasant 22 years old -[place] female with no significant past medical history. Presents because of skin lesion in the left lower back started since last Wednesday about 3-4 days ago, as per patient is started on small area and slowly get bigger it's painful with pain radiating to her lower extremity, she rates the pain at 9/10 and shooting pain increased by movement Associated with mild headache and dizziness but no weakness or numbness No change in urine or bowel habits, no diarrhea vomiting or abdominal pain. No dysuria or urgency. No weakness or numbness. Patient denies trauma, no buttock bites as per patient. Patient denies to me any previous history of IV drug abuse, any other substance abuse. She denies smoking alcohol as well. Patient is afebrile and other labs look stable.she is moderately tachycardic ago around 100 100s and 7 Hemoglobin is 10.7 and WBC 9.4 BMP and liver enzymes were unremarkable HCG is not detected. Patient has CT of the abdomen and pelvis on left chest wall abscess 7.63.83.1 cm with surrounding cellulitis Patient started on IV vancomycin and normal saline 75 mL/h She was admitted for surgery team consult 06/03/2023 Patient lower back abscess opened spontaneously today at 2 spots, there was a lot of draining of purulent material, the area looks somewhat tender to touch with surrounding cellulitis, we will send for wound culture from her purulent discharge Case was discussed with surgery team Currently she is covered with IV vancomycin and normal saline 75 mL/h She is still tachycardic but slightly better Repeat labs from today are still pending, we will follow-up Discussed with staff as well 06/03. Patient seen and examined. Blood work done this morning showed WBC 7.33, hemoglobin 0.9, platelet count 404. Still has pain in the left side of her back, scheduled for I&D today REVIEW OF SYSTEMS: CONSTITUTIONAL: No fever, no malaise,. CARDIOVASCULAR: No chest pain, no palpitations, no syncope. PULMONARY: No shortness of breath, no cough, GASTROINTESTINAL: No diarrhea, no nausea, no vomiting, no abdominal pain. NEUROLOGICAL: No headaches, no weakness, PHYSICAL EXAMINATION: GENERAL: The patient is alert and oriented x3, not in any acute distress. Well developed, well nourished. HEENT: Pupils are round and equally reacting to light. EOMI. No scleral icterus. No conjunctival pallor. Normocephalic, atraumatic. No pharyngeal erythema. No thyromegaly. CARDIOVASCULAR: S1 and S2 present. No murmurs, rubs, or gallops. PULMONARY: Chest is clear to auscultation, no wheezing or crackles. ABDOMEN: Soft, nontender, nondistended, normoactive bowel sounds. No palpable organomegaly. MUSCULOSKELETAL: Bandage over left side of back seen EXTREMITIES: No cyanosis, clubbing, or pedal edema. NEUROLOGICAL: Gross neurological examination did not reveal any focal deficits. SKIN: No rashes. Assessment and plan Left upper back abscess with surrounding soft tissue cellulitis Obesity Monitor vital signs Monitor CBC Monitor CMP Continue telemetry monitoring Encourage use of incentive spirometer Follow-up on blood cultures follow-up on wound culture Patient is scheduled for I&D today Continue IV vancomycin ID following Surgery following Labs and medication were reviewed.. Continue same treatment. Continue with symptomatic treatment. Resume home medication. Monitor labs and vitals. DVT and GI prophylaxis. Further recommendations as per clinical course of the patient Dictation was produced using [employer] dictation software. please excuse any grammatical, word or spelling errors. Objective - Vital Signs Vital signs: Vital Signs Temp 97.5 F L 06/04/23 07:25 Pulse 89 06/04/23 09:13 Resp 18 06/04/23 09:13 BP 94/62 06/04/23 07:25 Pulse Ox 98 06/04/23 07:25 FiO2 Intake & Output 06/03/23 06/04/23 06/04/23 18:59 06:59 18:59 Intake Total 200 Balance 200 Intake: Oral 200 Other: Voiding Method Toilet Toilet # Voids 3 2 - Labs CBC & Chem 7: 06/04/23 06:04 06/04/23 06:04 Labs: Abnormal Lab Results - Last 24 Hours (Table) 06/03/23 06/03/23 06/03/23 Range/Units 15:22 15:22 15:22 Hgb 10.6 L (11.4-16.0) gm/dL Hct (37.2-46.3) % MCV 72.3 L (80.0-100.0) fL MCH 21.8 L (25.0-35.0) pg MCHC 30.2 L (31.0-37.0) g/dL RDW (11.5-14.5) % MPV (9.5-12.2) FL Chloride 108 H (98-107) mmol/L Hemoglobin A1c 6.3 H (<=6.0) % 06/04/23 Range/Units 06:04 Hgb 9.9 L (11.4-16.0) gm/dL Hct 32.9 L (37.2-46.3) % MCV 69.1 L (80.0-100.0) fL MCH 20.8 L (25.0-35.0) pg MCHC 30.1 L (31.0-37.0) g/dL RDW 15.2 H (11.5-14.5) % MPV 9.2 L (9.5-12.2) FL Chloride (98-107) mmol/L Hemoglobin A1c (<=6.0) % Microbiology - Last 24 Hours (Table) 06/03/23 11:46 Gram Stain - Preliminary Back Wound Culture - Preliminary 06/01/23 20:01 Blood Culture - Preliminary Blood 06/01/23 19:30 Blood Culture - Preliminary Blood
[2023-06-04] MEDS: LACTATED RINGERS 1,000 ML IV ONE (15:22)
[2023-06-04] MEDS ORDERED: fentaNYL (PF) 50 MCG/ML 2 ML AMP ONE (15:56)
[2023-06-04] MEDS ORDERED: LIDOCAINE 1% INJ 10MG/ML (20 ML MDV) ONE (15:56)
[2023-06-04] MEDS ORDERED: MIDAZOLAM 2 MG/2 ML VIAL ONE (15:56)
[2023-06-04] MEDS ORDERED: KETAMINE HCL IN 0.9 % NACL 50 MG/5 ML SYRINGE ONE (15:56)
[2023-06-04] MEDS ORDERED: PROPOFOL 10 MG/ML 20 ML VIAL IV ONE (15:56)
[2023-06-04] MEDS: LIDOCAINE 1% INJ 10MG/ML (20 ML MDV) SQ ONE ×3 (16:10)
--- NOTE | 2023-06-04 16:24 | P.OP ---
Date of Procedure: 06/04/23 Procedure(s) Performed: PREOPERATIVE DIAGNOSIS: Left back abscess POSTOPERATIVE DIAGNOSIS: Same PROCEDURE: Incision and drainage left back abscess SURGEON: Martin EBL: 20 cc ANESTHESIA: Sedation and local COMPLICATIONS: None OPERATIVE PROCEDURE: Patient placed on the table in the right decubitus position. The patient's left upper back was prepped and draped sterilely. Skin infiltrated with 1% lidocaine. Incision made over the fluctuant region. Entrance into a moderate sized abscess cavity took place. This measured 9 x 3 cm x 3 cm. This was irrigated thoroughly with saline. The incision was lengthened. Incision length approximately 7 cm. No necrotic tissue beneath the skin noted. Area was then packed with half-inch iodophor gauze. Sterile outer dressing applied. DISPOSITION: Stable to recovery room
[2023-06-04 17:36] LABS: Glucose,Whole Blood 80 mg/dL (70-110)
[2023-06-04 21:17] LABS: Glucose,Whole Blood 123 mg/dL (70-110)
--- NOTE | 2023-06-04 22:00 | P.CONS ---
History of Present Illness - Reason for Consult Consult date: 06/04/23 Back abscess Requesting physician: Hamilton Perea - Chief Complaint Increasing pain and discomfort to the left mid back x few days - History of Present Illness Patient is a 22-year-old -[place] female with a past medical history pertinent for polycystic kidney disease and hypothyroidism, presenting to the hospital 3 days ago for evaluation of pain and discomfort to the left mid back area, symptom started for 2 days before presentation to the hospital patient denies any history of any trauma noted to have a small lesion which has increased in size becoming more painful patient describes the pain to be sharp about 10 out of 10 and subsequent noticed to having some purulent drainage patient denies any high-grade fever and did not have any fever during this hospital stay patient was tachycardic but not hypotensive or hypoxic and did have a white count of 8.9 kidney function was normal liver enzymes are normal blood culture parents are currently pending patient did have abdominal pelvis CT in the left anterior chest wall posteriorly suggestive of edema cellulitis suggestive of phlegmon notifying abscess patient has been treated with vancomycin infectious disease was consulted today for further management of antibiotic therapy Review of Systems Positive point and negatives has been mentioned in the HPI, complete review of systems was performed and all other systems are negative Past Medical History Past Medical History: Renal Disease, Thyroid Disorder Additional Past Medical History / Comment(s): pcos, hypothyroid History of Any Multi-Drug Resistant Organisms: None Reported Additional Past Surgical History / Comment(s): wrist - cyst removed Past Psychological History: Anxiety, Depression Smoking Status: Never smoker Past Alcohol Use History: None Reported Past Drug Use History: None Reported Medications and Allergies Home Medications Medication Instructions Recorded Confirmed Type Acetaminophen Tab [Tylenol] 1,000 mg PO Q6HR PRN 06/01/23 06/01/23 History Acetaminophen/Pamabrom [Midol 1 - 2 tab PO Q6H PRN 06/01/23 06/01/23 History Caplet] Sertraline [Zoloft] 50 mg PO HS 06/01/23 06/01/23 History metFORMIN HCL [Glucophage] 500 mg PO BID 06/01/23 06/01/23 History Amoxic-Pot Clav 875-125Mg 1 tab PO BID 10 Days #20 tab 06/07/23 Rx [Augmentin 875-125] HYDROcodone/APAP 5-325MG [[place] 1 tab PO Q6HR PRN 3 Days #12 tab 06/07/23 Rx 5-325] Allergies Allergy/AdvReac Type Severity Reaction Status Date / Time ibuprofen [From Motrin] AdvReac Nausea & Verified 06/01/23 19:45 Vomiting Physical Exam Vitals: Vital Signs Temp Pulse Resp BP Pulse Ox 06/04/23 09:13 89 18 06/04/23 07:25 97.5 F L 89 18 94/62 98 06/04/23 01:19 98.7 F 93 16 103/64 98 06/03/23 19:17 98.6 F 99 16 117/80 06/03/23 17:00 91 06/03/23 16:52 98.8 F 91 12 96/64 97 06/03/23 14:00 98.6 F 93 15 121/74 99 Intake and Output 06/03/23 06/04/23 06/04/23 22:59 06:59 14:59 Intake Total 100 Balance 100 Intake: Oral 100 Other: Voiding Method Toilet Toilet # Voids 3 2 GENERAL DESCRIPTION: Young female lying in bed, no distress. No tachypnea or ac cessory muscle of respiration use. HEENT: Shows Pallor , no scleral icterus. Oral mucous membrane is dry. NECK: Trachea central, no thyromegaly. LUNGS: Unlabored breathing. Clear to auscultation anteriorly. No wheeze or crackle. HEART: S1, S2, regular rate and rhythm. No loud murmur ABDOMEN: Soft, no tenderness , EXTREMITIES: No edema of feet. SKIN: Left mid back area did have a small opening with a purulent drainage NEUROLOGICAL: The patient is awake, alert, oriented x3, mood and affect normal. Results CBC & Chem 7: 06/06/23 04:54 06/06/23 04:54 Labs: Abnormal Lab Results - Last 24 Hours (Table) 06/03/23 06/03/23 06/03/23 Range/Units 15:22 15:22 15:22 Hgb 10.6 L (11.4-16.0) gm/dL Hct (37.2-46.3) % MCV 72.3 L (80.0-100.0) fL MCH 21.8 L (25.0-35.0) pg MCHC 30.2 L (31.0-37.0) g/dL RDW (11.5-14.5) % MPV (9.5-12.2) FL Chloride 108 H (98-107) mmol/L Hemoglobin A1c 6.3 H (<=6.0) % 06/04/23 Range/Units 06:04 Hgb 9.9 L (11.4-16.0) gm/dL Hct 32.9 L (37.2-46.3) % MCV 69.1 L (80.0-100.0) fL MCH 20.8 L (25.0-35.0) pg MCHC 30.1 L (31.0-37.0) g/dL RDW 15.2 H (11.5-14.5) % MPV 9.2 L (9.5-12.2) FL Chloride (98-107) mmol/L Hemoglobin A1c (<=6.0) % Microbiology - Last 24 Hours (Table) 06/03/23 11:46 Gram Stain - Preliminary Back Wound Culture - Preliminary 06/01/23 20:01 Blood Culture - Preliminary Blood 06/01/23 19:30 Blood Culture - Preliminary Blood Assessment and Plan (1) Back abscess Current Visit: Yes Status: Acute Code(s): L02.212 - CUTANEOUS ABSCESS OF BACK [ANY PART, EXCEPT BUTTOCK] SNOMED Code(s): 411555076 (2) Cellulitis of back Current Visit: Yes Status: Acute Code(s): L03.312 - CELLULITIS OF BACK [ANY PART EXCEPT BUTTOCK] SNOMED Code(s): 471880148 Plan: 1patient presented hospital with increasing pain drainage from the left mid back area concerning for possible abscess as there was evidence of purulent drainage likely from gram-positive skin roland such as Staph aureus question of MRSA 2-patient benefit from surgical drainage and deep culture 3-for now continue the vancomycin while watching her kidney function closely We will follow on clinical condition and cultures to further adjust medication if needed Thank you for this consultation we will follow the patient along with you Dictation was produced using [employer] dictation software. please excuse any grammatical, word or spelling errors. Time with Patient: Greater than 30
[2023-06-05 06:58] LABS: Glucose,Whole Blood 103 mg/dL (70-110)
[2023-06-05 09:46] LABS: Basophils # (A) 0.04 X 10*3/uL (0.00-0.10); Basophils % (A) 0.7 %; Eosinophils # (A) 0.12 X 10*3/uL (0.04-0.35); Eosinophils % (A) 2.2 %; HCT 33.1 % (37.2-46.3); Lymphocytes % (A) 32.4 %; MCHC 30.2 g/dL (32.0-37.0); MCV 69.5 FL (80.0-97.0); Mean Platelet Volume 8.9 FL (9.5-12.2); Monocytes # (A) 0.47 X 10*3/uL (0.20-1.00); Monocytes % (A) 8.5 %; NRBC Per 100 WBC 0 X 10*3/uL (0.00-0.01); Neutrophils # (A) 3.12 X 10*3/uL (1.80-7.70); Platelet Count 403 X 10*3/uL (140-440); RBC 4.76 X 10*6/uL (4.10-5.20); RDW 15.2 % (11.5-14.5); WBC 5.56 X 10*3/uL (4.50-10.00)
[2023-06-05 09:52] LABS: ALT 26 U/L (8-44); AST 39 U/L (13-35); Albumin 3.4 g/dL (3.8-4.9); Albumin/Globulin Ratio 1.36 Ratio (1.60-3.17); Alkaline Phosphatase 75 U/L (41-126); BUN/Creat Ratio 12.67 Ratio (12.00-20.00); Blood Urea Nitrogen 7.6 mg/dL (9.0-27.0); Calcium 8.8 mg/dL (8.7-10.3); Carbon Dioxide 26.6 mmol/L (21.6-31.8); Chloride 104 mmol/L (96-109); Globulin 2.5 g/dL (1.6-3.3); Glucose 91 mg/dL (70-110); Potassium 4.3 mmol/L (3.5-5.5); Sodium 141 mmol/L (135-145); Total Bilirubin <0.2 mg/dL (0.3-1.2); Total Protein 5.9 g/dL (6.2-8.2)
[2023-06-05 11:28] LABS: Glucose,Whole Blood 111 mg/dL (70-110)
--- NOTE | 2023-06-05 13:09 | P.PN ---
Subjective Progress Note Date: 06/05/23 this is a pleasant 22 years old -Angolan female with no significant past medical history. Presents because of skin lesion in the left lower back started since last Wednesday about 3-4 days ago, as per patient is started on small area and slowly get bigger it's painful with pain radiating to her lower extremity, she rates the pain at 9/10 and shooting pain increased by movement Associated with mild headache and dizziness but no weakness or numbness No change in urine or bowel habits, no diarrhea vomiting or abdominal pain. No dysuria or urgency. No weakness or numbness. Patient denies trauma, no buttock bites as per patient. Patient denies to me any previous history of IV drug abuse, any other substance abuse. She denies smoking alcohol as well. Patient is afebrile and other labs look stable.she is moderately tachycardic ago around 100 100s and 7 Hemoglobin is 10.7 and WBC 9.4 BMP and liver enzymes were unremarkable HCG is not detected. Patient has CT of the abdomen and pelvis on left chest wall abscess 7.63.83.1 cm with surrounding cellulitis Patient started on IV vancomycin and normal saline 75 mL/h She was admitted for surgery team consult 06/03/2023 Patient lower back abscess opened spontaneously today at 2 spots, there was a lot of draining of purulent material, the area looks somewhat tender to touch with surrounding cellulitis, we will send for wound culture from her purulent discharge Case was discussed with surgery team Currently she is covered with IV vancomycin and normal saline 75 mL/h She is still tachycardic but slightly better Repeat labs from today are still pending, we will follow-up Discussed with staff as well 06/03. Patient seen and examined. Blood work done this morning showed WBC 7.33, hemoglobin 0.9, platelet count 404. Still has pain in the left side of her back, scheduled for I&D today 06/04. Patient seen and examined. S/p Incision and drainage left back abscess. Blood work done this morning showed WBC 5.56, hemoglobin 10, platelet count 403, sodium 141, potassium 4.3, BUN 7.6, creatinine 0.6. Back pain has improved REVIEW OF SYSTEMS: CONSTITUTIONAL: No fever, no malaise,. CARDIOVASCULAR: No chest pain, no palpitations, no syncope. PULMONARY: No shortness of breath, no cough, GASTROINTESTINAL: No diarrhea, no nausea, no vomiting, no abdominal pain. NEUROLOGICAL: No headaches, no weakness, PHYSICAL EXAMINATION: GENERAL: The patient is alert and oriented x3, not in any acute distress. Well developed, well nourished. HEENT: Pupils are round and equally reacting to light. EOMI. No scleral icterus. No conjunctival pallor. Normocephalic, atraumatic. No pharyngeal erythema. No thyromegaly. CARDIOVASCULAR: S1 and S2 present. No murmurs, rubs, or gallops. PULMONARY: Chest is clear to auscultation, no wheezing or crackles. ABDOMEN: Soft, nontender, nondistended, normoactive bowel sounds. No palpable organomegaly. MUSCULOSKELETAL: Bandage over left side of back seen EXTREMITIES: No cyanosis, clubbing, or pedal edema. NEUROLOGICAL: Gross neurological examination did not reveal any focal deficits. SKIN: Surgical bandage seen on the left side of the back Assessment and plan Left upper back abscess with surrounding soft tissue cellulitis Obesity Monitor vital signs Monitor CBC Monitor CMP Continue telemetry monitoring Encourage use of incentive spirometer Follow-up on blood cultures follow-up on wound culture S/p Incision and drainage left back abscess Continue IV vancomycin ID following Surgery following Labs and medication were reviewed.. Continue same treatment. Continue with symptomatic treatment. Resume home medication. Monitor labs and vitals. DVT and GI prophylaxis. Further recommendations as per clinical course of the patient Dictation was produced using [employer] dictation software. please excuse any grammatical, word or spelling errors. Objective - Vital Signs Vital signs: Vital Signs Temp 98.0 F 06/05/23 07:43 Pulse 92 06/05/23 07:43 Resp 18 06/05/23 07:43 BP 139/85 06/05/23 07:43 Pulse Ox 98 06/05/23 07:43 FiO2 Intake & Output 06/04/23 06/05/23 06/05/23 18:59 06:59 18:59 Intake Total 725 Output Total 20 Balance 705 Weight 133.81 kg Intake: IV 725 Output: Estimated Blood Loss 20 Other: Voiding Method Toilet # Voids 2 2 - Labs CBC & Chem 7: 06/05/23 05:50 06/05/23 05:50 Labs: Abnormal Lab Results - Last 24 Hours (Table) 06/04/23 06/05/23 06/05/23 Range/Units 21:15 05:50 05:50 Hgb 10.0 L (12.0-15.0) g/dL Hct 33.1 L (37.2-46.3) % MCV 69.5 L (80.0-97.0) FL MCH 21.0 L (27.0-32.0) pg MCHC 30.2 L (32.0-37.0) g/dL RDW 15.2 H (11.5-14.5) % MPV 8.9 L (9.5-12.2) FL BUN 7.6 L (9.0-27.0) mg/dL POC Glucose (mg/dL) 123 H (70-110) mg/dL Total Bilirubin <0.2 L (0.3-1.2) mg/dL AST 39 H (13-35) U/L Total Protein 5.9 L (6.2-8.2) g/dL Albumin 3.4 L (3.8-4.9) g/dL Albumin/Globulin Ratio 1.36 L (1.60-3.17) Ratio Microbiology - Last 24 Hours (Table) 06/03/23 11:46 Gram Stain - Final Back Wound Culture - Final 06/01/23 20:01 Blood Culture - Preliminary Blood 06/01/23 19:30 Blood Culture - Preliminary Blood
--- NOTE | 2023-06-05 15:14 | P.PN ---
Subjective Progress Note Date: 06/05/23 Principal diagnosis: Reason for follow-up is left mid back abscess Patient is a 22-year-old -[place]oz[place] female with a past medical history pertinent for polycystic kidney disease and hypothyroidism, presenting to the hospital for evaluation of left mid back pain diagnosed with an abscess in this patient who is status post surgical drainage on 06/04/2023 On today's evaluation that is 06/05/2023, the patient continues to be afebrile, the patient is on room air and breathing comfortably, the Pt denies having any chest pain or cough, the patient denies having any abdominal pain no vomiting or any diarrhea. Pain to the back wound area has decreased in intensity White count is 5.56, creatinine 0.6 cultures currently pending Objective - Vital Signs Vital signs: Vital Signs Temp 98.0 F 06/05/23 07:43 Pulse 92 06/05/23 07:43 Resp 18 06/05/23 07:43 BP 139/85 06/05/23 07:43 Pulse Ox 98 06/05/23 07:43 FiO2 Intake & Output 06/04/23 06/05/23 06/05/23 18:59 06:59 18:59 Intake Total 725 Output Total 20 Balance 705 Weight 133.81 kg Intake: IV 725 Output: Estimated Blood Loss 20 Other: Voiding Method Toilet # Voids 2 2 - Exam GENERAL DESCRIPTION: Young female lying in bed in no distress RESPIRATORY SYSTEM: Unlabored breathing , decreased breath sounds at bases ABDOMEN: Soft , no tenderness EXTREMITIES: No edema feet Left mid back wound base looks clean with no slough tissue or any purulent drainage - Labs CBC & Chem 7: 06/05/23 05:50 06/05/23 05:50 Labs: Abnormal Lab Results - Last 24 Hours (Table) 06/04/23 06/05/23 06/05/23 Range/Units 21:15 05:50 05:50 Hgb 10.0 L (12.0-15.0) g/dL Hct 33.1 L (37.2-46.3) % MCV 69.5 L (80.0-97.0) FL MCH 21.0 L (27.0-32.0) pg MCHC 30.2 L (32.0-37.0) g/dL RDW 15.2 H (11.5-14.5) % MPV 8.9 L (9.5-12.2) FL BUN 7.6 L (9.0-27.0) mg/dL POC Glucose (mg/dL) 123 H (70-110) mg/dL Total Bilirubin <0.2 L (0.3-1.2) mg/dL AST 39 H (13-35) U/L Total Protein 5.9 L (6.2-8.2) g/dL Albumin 3.4 L (3.8-4.9) g/dL Albumin/Globulin Ratio 1.36 L (1.60-3.17) Ratio 06/05/23 Range/Units 11:28 Hgb (12.0-15.0) g/dL Hct (37.2-46.3) % MCV (80.0-97.0) FL MCH (27.0-32.0) pg MCHC (32.0-37.0) g/dL RDW (11.5-14.5) % MPV (9.5-12.2) FL BUN (9.0-27.0) mg/dL POC Glucose (mg/dL) 111 H (70-110) mg/dL Total Bilirubin (0.3-1.2) mg/dL AST (13-35) U/L Total Protein (6.2-8.2) g/dL Albumin (3.8-4.9) g/dL Albumin/Globulin Ratio (1.60-3.17) Ratio Microbiology - Last 24 Hours (Table) 06/03/23 11:46 Anaerobic Culture - Preliminary Back 06/03/23 11:46 Gram Stain - Final Back Wound Culture - Final 06/01/23 20:01 Blood Culture - Preliminary Blood 06/01/23 19:30 Blood Culture - Preliminary Blood Assessment and Plan (1) Back abscess Current Visit: Yes Status: Acute Code(s): L02.212 - CUTANEOUS ABSCESS OF BACK [ANY PART, EXCEPT BUTTOCK] SNOMED Code(s): 043499358 (2) Cellulitis of back Current Visit: Yes Status: Acute Code(s): L03.312 - CELLULITIS OF BACK [ANY PART EXCEPT BUTTOCK] SNOMED Code(s): 540763334 Plan: 1patient presented hospital with increasing pain drainage from the left mid back area concerning for possible abscess as there was evidence of purulent juana inage likely from gram-positive skin roland such as Staph aureus question of MRSA 2-patient is status post surgical drainage and deep culture which are currently pending 3-patient to continue the vancomycin while waiting for the culture to finalize local care with Aquacel silver packing of the wound Dictation was produced using [employer] dictation software. please excuse any grammatical, word or spelling errors. Time with Patient: Less than 30
[2023-06-05 16:29] LABS: Glucose,Whole Blood 109 mg/dL (70-110)
--- NOTE | 2023-06-05 19:27 | P.PN ---
Subjective patient seen and evaluated nausea.Patient doing well, no complaints, mild left back pain Objective - Vital Signs Vital signs: Vital Signs Temp 98.3 F 06/05/23 13:56 Pulse 66 06/05/23 13:56 Resp 19 06/05/23 13:56 BP 126/82 06/05/23 13:56 Pulse Ox 99 06/05/23 13:56 FiO2 Intake & Output 06/05/23 06/05/23 06/06/23 06:59 18:59 06:59 Other: # Voids 2 4 - Exam gen: nad cv: rrr pul: non labored breathing abd: soft, non tender to palpation, no guarding left flank: some exudate after packing removed - Labs CBC & Chem 7: 06/05/23 05:50 06/05/23 05:50 Labs: Abnormal Lab Results - Last 24 Hours (Table) 06/04/23 06/05/23 06/05/23 Range/Units 21:15 05:50 05:50 Hgb 10.0 L (12.0-15.0) g/dL Hct 33.1 L (37.2-46.3) % MCV 69.5 L (80.0-97.0) FL MCH 21.0 L (27.0-32.0) pg MCHC 30.2 L (32.0-37.0) g/dL RDW 15.2 H (11.5-14.5) % MPV 8.9 L (9.5-12.2) FL BUN 7.6 L (9.0-27.0) mg/dL POC Glucose (mg/dL) 123 H (70-110) mg/dL Total Bilirubin <0.2 L (0.3-1.2) mg/dL AST 39 H (13-35) U/L Total Protein 5.9 L (6.2-8.2) g/dL Albumin 3.4 L (3.8-4.9) g/dL Albumin/Globulin Ratio 1.36 L (1.60-3.17) Ratio 06/05/23 Range/Units 11:28 Hgb (12.0-15.0) g/dL Hct (37.2-46.3) % MCV (80.0-97.0) FL MCH (27.0-32.0) pg MCHC (32.0-37.0) g/dL RDW (11.5-14.5) % MPV (9.5-12.2) FL BUN (9.0-27.0) mg/dL POC Glucose (mg/dL) 111 H (70-110) mg/dL Total Bilirubin (0.3-1.2) mg/dL AST (13-35) U/L Total Protein (6.2-8.2) g/dL Albumin (3.8-4.9) g/dL Albumin/Globulin Ratio (1.60-3.17) Ratio Microbiology - Last 24 Hours (Table) 06/03/23 11:46 Anaerobic Culture - Preliminary Back 06/03/23 11:46 Gram Stain - Final Back Wound Culture - Final 06/01/23 20:01 Blood Culture - Preliminary Blood 06/01/23 19:30 Blood Culture - Preliminary Blood Assessment and Plan Assessment: 22 yo female w/left flank pain 2/2 abscess -s/p incision and drainage -continue abx -replacing packing -ok w/ aquacel ag+ Time with Patient: Less than 30
[2023-06-05 20:31] LABS: Glucose,Whole Blood 124 mg/dL (70-110)
[2023-06-06] MEDS: VANCOMYCIN 1,750 MG in SODIUM CHLORIDE 0.9% 500 ML 500 ML IVPB SCH (06:26)
[2023-06-06] MEDS: VANCOMYCIN TROUGH DUE 1 EACH MISC MISCELLANE ONE (06:27)
[2023-06-06 06:44] LABS: Glucose,Whole Blood 100 mg/dL (70-110)
[2023-06-06 09:47] LABS: Basophils # (A) 0.04 X 10*3/uL (0.00-0.10); Basophils % (A) 0.7 %; Eosinophils # (A) 0.13 X 10*3/uL (0.04-0.35); Eosinophils % (A) 2.2 %; HGB 10.5 g/dL (12.0-15.0); Lymphocytes # (A) 2.23 X 10*3/uL (0.90-5.00); Lymphocytes % (A) 37.9 %; MCH 20.8 pg (27.0-32.0); MCV 69.2 FL (80.0-97.0); Mean Platelet Volume 9.1 FL (9.5-12.2); Monocytes # (A) 0.42 X 10*3/uL (0.20-1.00); Monocytes % (A) 7.1 %; NRBC Per 100 WBC 0 X 10*3/uL (0.00-0.01); Neutrophils # (A) 3.04 X 10*3/uL (1.80-7.70); Neutrophils % (A) 51.8 %; Platelet Count 438 X 10*3/uL (140-440); RBC 5.06 X 10*6/uL (4.10-5.20); RDW 15.3 % (11.5-14.5); WBC 5.88 X 10*3/uL (4.50-10.00)
[2023-06-06 09:55] LABS: ALT 27 U/L (8-44); AST 35 U/L (13-35); Albumin 3.6 g/dL (3.8-4.9); Albumin/Globulin Ratio 1.33 Ratio (1.60-3.17); Alkaline Phosphatase 81 U/L (41-126); BUN/Creat Ratio 12.83 Ratio (12.00-20.00); Blood Urea Nitrogen 7.7 mg/dL (9.0-27.0); Calcium 9.2 mg/dL (8.7-10.3); Chloride 102 mmol/L (96-109); Globulin 2.7 g/dL (1.6-3.3); Glucose 100 mg/dL (70-110); Potassium 4.5 mmol/L (3.5-5.5); Sodium 139 mmol/L (135-145); Total Bilirubin <0.2 mg/dL (0.3-1.2); Total Protein 6.3 g/dL (6.2-8.2)
[2023-06-06 11:42] LABS: Glucose,Whole Blood 119 mg/dL (70-110)
--- NOTE | 2023-06-06 12:43 | P.PN ---
Subjective Progress Note Date: 06/06/23 Principal diagnosis: Left back abscess Patient says her pain is improving. Tmax 99. Packing was removed and replaced yesterday with Aquacel silver. Had some discomfort with the dressing change. Objective - Vital Signs Vital signs: Vital Signs Temp 98.3 F 06/06/23 07:19 Pulse 78 06/06/23 07:19 Resp 18 06/06/23 07:19 BP 123/73 06/06/23 07:19 Pulse Ox 100 06/06/23 07:19 FiO2 Intake & Output 06/05/23 06/06/23 06/06/23 18:59 06:59 18:59 Other: # Voids 4 1 - Exam Left back with wound that is clean, small amount of seropurulent drainage, mild induration, mild tenderness - Labs CBC & Chem 7: 06/06/23 04:54 06/06/23 04:54 Labs: Abnormal Lab Results - Last 24 Hours (Table) 06/05/23 06/06/23 06/06/23 Range/Units 20:30 04:54 04:54 Hgb 10.5 L (12.0-15.0) g/dL Hct 35.0 L (37.2-46.3) % MCV 69.2 L (80.0-97.0) FL MCH 20.8 L (27.0-32.0) pg MCHC 30.0 L (32.0-37.0) g/dL RDW 15.3 H (11.5-14.5) % MPV 9.1 L (9.5-12.2) FL BUN 7.7 L (9.0-27.0) mg/dL POC Glucose (mg/dL) 124 H (70-110) mg/dL Total Bilirubin <0.2 L (0.3-1.2) mg/dL Albumin 3.6 L (3.8-4.9) g/dL Albumin/Globulin Ratio 1.33 L (1.60-3.17) Ratio 06/06/23 Range/Units 11:41 Hgb (12.0-15.0) g/dL Hct (37.2-46.3) % MCV (80.0-97.0) FL MCH (27.0-32.0) pg MCHC (32.0-37.0) g/dL RDW (11.5-14.5) % MPV (9.5-12.2) FL BUN (9.0-27.0) mg/dL POC Glucose (mg/dL) 119 H (70-110) mg/dL Total Bilirubin (0.3-1.2) mg/dL Albumin (3.8-4.9) g/dL Albumin/Globulin Ratio (1.60-3.17) Ratio Microbiology - Last 24 Hours (Table) 06/03/23 11:46 Anaerobic Culture - Preliminary Back 06/03/23 11:46 Gram Stain - Final Back Wound Culture - Final Assessment and Plan (1) Back abscess Narrative/Plan: 22-year-old female with back abscess. Doing better at this time. Continue antibiotics. Arrange for home care. Plan discharge tomorrow. Current Visit: Yes Status: Acute Code(s): L02.212 - CUTANEOUS ABSCESS OF BACK [ANY PART, EXCEPT BUTTOCK] SNOMED Code(s): 731567937
--- NOTE | 2023-06-06 12:50 | P.PN ---
Subjective Progress Note Date: 06/06/23 this is a pleasant 22 years old -[place]ad[place] female with no significant past medical history. Presents because of skin lesion in the left lower back started since last Wednesday about 3-4 days ago, as per patient is started on small area and slowly get bigger it's painful with pain radiating to her lower extremity, she rates the pain at 9/10 and shooting pain increased by movement Associated with mild headache and dizziness but no weakness or numbness No change in urine or bowel habits, no diarrhea vomiting or abdominal pain. No dysuria or urgency. No weakness or numbness. Patient denies trauma, no buttock bites as per patient. Patient denies to me any previous history of IV drug abuse, any other substance abuse. She denies smoking alcohol as well. Patient is afebrile and other labs look stable.she is moderately tachycardic ago around 100 100s and 7 Hemoglobin is 10.7 and WBC 9.4 BMP and liver enzymes were unremarkable HCG is not detected. Patient has CT of the abdomen and pelvis on left chest wall abscess 7.63.83.1 cm with surrounding cellulitis Patient started on IV vancomycin and normal saline 75 mL/h She was admitted for surgery team consult 06/03/2023 Patient lower back abscess opened spontaneously today at 2 spots, there was a lot of draining of purulent material, the area looks somewhat tender to touch with surrounding cellulitis, we will send for wound culture from her purulent discharge Case was discussed with surgery team Currently she is covered with IV vancomycin and normal saline 75 mL/h She is still tachycardic but slightly better Repeat labs from today are still pending, we will follow-up Discussed with staff as well 06/03. Patient seen and examined. Blood work done this morning showed WBC 7.33, hemoglobin 0.9, platelet count 404. Still has pain in the left side of her back, scheduled for I&D today 06/04. Patient seen and examined. S/p Incision and drainage left back abscess. Blood work done this morning showed WBC 5.56, hemoglobin 10, platelet count 403, sodium 141, potassium 4.3, BUN 7.6, creatinine 0.6. Back pain has improved 06/05. Patient seen and examined. No acute issues overnight labs done showed WBC 5.88, hemoglobin 10.5, platelet count 438 complaining that pain is worse today compared to yesterday. Still getting dressing change of the back REVIEW OF SYSTEMS: CONSTITUTIONAL: No fever, no malaise,. CARDIOVASCULAR: No chest pain, no palpitations, no syncope. PULMONARY: No shortness of breath, no cough, GASTROINTESTINAL: No diarrhea, no nausea, no vomiting, no abdominal pain. NEUROLOGICAL: No headaches, no weakness, PHYSICAL EXAMINATION: GENERAL: The patient is alert and oriented x3, not in any acute distress. Well developed, well nourished. HEENT: Pupils are round and equally reacting to light. EOMI. No scleral icterus. No conjunctival pallor. Normocephalic, atraumatic. No pharyngeal erythema. No thyromegaly. CARDIOVASCULAR: S1 and S2 present. No murmurs, rubs, or gallops. PULMONARY: Chest is clear to auscultation, no wheezing or crackles. ABDOMEN: Soft, nontender, nondistended, normoactive bowel sounds. No palpable organomegaly. MUSCULOSKELETAL: Bandage over left side of back seen EXTREMITIES: No cyanosis, clubbing, or pedal edema. NEUROLOGICAL: Gross neurological examination did not reveal any focal deficits. SKIN: Surgical bandage seen on the left side of the back Assessment and plan Left upper back abscess with surrounding soft tissue cellulitis Obesity Prediabetes, last HbA1c level was 6.3 Monitor vital signs Monitor CBC Monitor CMP Continue telemetry monitoring Encourage use of incentive spirometer Follow-up on blood cultures follow-up on wound culture S/p Incision and drainage left back abscess Continue wound care Continue IV vancomycin ID following Surgery following Labs and medication were reviewed.. Continue same treatment. Continue with symptomatic treatment. Resume home medication. Monitor labs and vitals. DVT and GI prophylaxis. Further recommendations as per clinical course of the patient Dictation was produced using [employer] dictation software. please excuse any grammatical, word or spelling errors. Objective - Vital Signs Vital signs: Vital Signs Temp 98.3 F 06/06/23 07:19 Pulse 78 06/06/23 07:19 Resp 18 06/06/23 07:19 BP 123/73 06/06/23 07:19 Pulse Ox 100 06/06/23 07:19 FiO2 Intake & Output 06/05/23 06/06/23 06/06/23 18:59 06:59 18:59 Other: # Voids 4 1 - Labs CBC & Chem 7: 06/06/23 04:54 06/06/23 04:54 Labs: Abnormal Lab Results - Last 24 Hours (Table) 06/05/23 06/05/23 06/05/23 Range/Units 05:50 11:28 20:30 Hgb (12.0-15.0) g/dL Hct (37.2-46.3) % MCV (80.0-97.0) FL MCH (27.0-32.0) pg MCHC (32.0-37.0) g/dL RDW (11.5-14.5) % MPV (9.5-12.2) FL BUN 7.6 L (9.0-27.0) mg/dL POC Glucose (mg/dL) 111 H 124 H (70-110) mg/dL Total Bilirubin <0.2 L (0.3-1.2) mg/dL AST 39 H (13-35) U/L Total Protein 5.9 L (6.2-8.2) g/dL Albumin 3.4 L (3.8-4.9) g/dL Albumin/Globulin Ratio 1.36 L (1.60-3.17) Ratio 06/06/23 Range/Units 04:54 Hgb 10.5 L (12.0-15.0) g/dL Hct 35.0 L (37.2-46.3) % MCV 69.2 L (80.0-97.0) FL MCH 20.8 L (27.0-32.0) pg MCHC 30.0 L (32.0-37.0) g/dL RDW 15.3 H (11.5-14.5) % MPV 9.1 L (9.5-12.2) FL BUN (9.0-27.0) mg/dL POC Glucose (mg/dL) (70-110) mg/dL Total Bilirubin (0.3-1.2) mg/dL AST (13-35) U/L Total Protein (6.2-8.2) g/dL Albumin (3.8-4.9) g/dL Albumin/Globulin Ratio (1.60-3.17) Ratio Microbiology - Last 24 Hours (Table) 06/03/23 11:46 Anaerobic Culture - Preliminary Back 06/03/23 11:46 Gram Stain - Final Back Wound Culture - Final
--- NOTE | 2023-06-06 15:17 | P.PN ---
Subjective Progress Note Date: 06/06/23 Principal diagnosis: Reason for follow-up is left mid back abscess Patient is a 22-year-old -[place] Islander female with a past medical history pertinent for polycystic kidney disease and hypothyroidism, presenting to the hospital for evaluation of left mid back pain diagnosed with an abscess in this patient who is status post surgical drainage on 06/04/2023 On today's evaluation that is 06/06/2023, Patient is afebrile patient is currently on room air and denies having any shortness of breath, the patient denies any chest pain or cough, the patient denies any nausea vomiting did not have any abdominal pain and no diarrhea complaining of some pain to the left mid back area after packing discontinued. Patient white count of 5.88, creatinine 0.6 Vanco trough is 17.5 cultures currently pending Objective - Vital Signs Vital signs: Vital Signs Temp 98.3 F 06/06/23 13:40 Pulse 70 06/06/23 13:40 Resp 18 06/06/23 13:40 BP 106/70 06/06/23 13:40 Pulse Ox 99 06/06/23 13:40 FiO2 Intake & Output 06/05/23 06/06/23 06/06/23 18:59 06:59 18:59 Other: # Voids 4 1 - Exam GENERAL DESCRIPTION: Young female lying in bed in no distress RESPIRATORY SYSTEM: Unlabored breathing , decreased breath sounds at bases ABDOMEN: Soft , no tenderness EXTREMITIES: No edema feet Left mid back wound base looks clean with no slough tissue or any purulent drainage - Labs CBC & Chem 7: 06/06/23 04:54 06/06/23 04:54 Labs: Abnormal Lab Results - Last 24 Hours (Table) 06/05/23 06/06/23 06/06/23 Range/Units 20:30 04:54 04:54 Hgb 10.5 L (12.0-15.0) g/dL Hct 35.0 L (37.2-46.3) % MCV 69.2 L (80.0-97.0) FL MCH 20.8 L (27.0-32.0) pg MCHC 30.0 L (32.0-37.0) g/dL RDW 15.3 H (11.5-14.5) % MPV 9.1 L (9.5-12.2) FL BUN 7.7 L (9.0-27.0) mg/dL POC Glucose (mg/dL) 124 H (70-110) mg/dL Total Bilirubin <0.2 L (0.3-1.2) mg/dL Albumin 3.6 L (3.8-4.9) g/dL Albumin/Globulin Ratio 1.33 L (1.60-3.17) Ratio 06/06/23 Range/Units 11:41 Hgb (12.0-15.0) g/dL Hct (37.2-46.3) % MCV (80.0-97.0) FL MCH (27.0-32.0) pg MCHC (32.0-37.0) g/dL RDW (11.5-14.5) % MPV (9.5-12.2) FL BUN (9.0-27.0) mg/dL POC Glucose (mg/dL) 119 H (70-110) mg/dL Total Bilirubin (0.3-1.2) mg/dL Albumin (3.8-4.9) g/dL Albumin/Globulin Ratio (1.60-3.17) Ratio Assessment and Plan (1) Back abscess Current Visit: Yes Status: Acute Code(s): L02.212 - CUTANEOUS ABSCESS OF BACK [ANY PART, EXCEPT BUTTOCK] SNOMED Code(s): 774389219 (2) Cellulitis of back Current Visit: Yes Status: Acute Code(s): L03.312 - CELLULITIS OF BACK [ANY PART EXCEPT BUTTOCK] SNOMED Code(s): 960280058 Plan: 1patient presented hospital with increasing pain drainage from the left mid back area concerning for possible abscess as there was evidence of purulent drainage likely from gram-positive skin roland such as Staph aureus question of MRSA 2-patient is status post surgical drainage and deep culture which are currently pending 3-patient to continue local wound care with Aquacel packing of the wound and vancomycin plan for oral antibiotic on discharge Dictation was produced using [employer] software. please excuse any grammatical, word or spelling errors. Time with Patient: Less than 30
[2023-06-06 16:19] LABS: Glucose,Whole Blood 86 mg/dL (70-110)
[2023-06-06 19:59] LABS: Glucose,Whole Blood 119 mg/dL (70-110)
[2023-06-07 06:12] LABS: Glucose,Whole Blood 89 mg/dL (70-110)
[2023-06-07 11:36] LABS: Glucose,Whole Blood 91 mg/dL (70-110)
--- NOTE | 2023-06-07 12:06 | P.DS ---
Providers Date of admission: 06/01/23 21:29 Expected date of discharge: 06/07/23 Attending physician: Librado Willson Consults: 06/04/23 10:30 Consult Physician Routine Consulting Provider: Jeremy Gimenez Consult Reason/Comments: Back abscess Do you want consulting provider notified?: Yes 06/07/23 07:52 Consult Physician Routine Consulting Provider: Payam Salazar Consult Reason/Comments: back abscess Do you want consulting provider notified?: Already Contacted Primary care physician: [facility] Course: Discharge diagnoses; Left upper back abscess with surrounding soft tissue cellulitis Obesity Prediabetes, last HbA1c level was 6.3 Hospital course; this is a pleasant 22 years old -[place] female with no significant past medical history. Presents because of skin lesion in the left lower back started since last Wednesday about 3-4 days ago, as per patient is started on small area and slowly get bigger it's painful with pain radiating to her lower extremity, she rates the pain at 9/10 and shooting pain increased by movement Associated with mild headache and dizziness but no weakness or numbness No change in urine or bowel habits, no diarrhea vomiting or abdominal pain. No dysuria or urgency. No weakness or numbness. Patient denies trauma, no buttock bites as per patient. Patient denies to me any previous history of IV drug abuse, any other substance abuse. She denies smoking alcohol as well. Patient is afebrile and other labs look stable.she is moderately tachycardic ago around 100 100s and 7 Hemoglobin is 10.7 and WBC 9.4 BMP and liver enzymes were unremarkable HCG is not detected. Patient has CT of the abdomen and pelvis on left chest wall abscess 7.63.83.1 cm with surrounding cellulitis Patient started on IV vancomycin and normal saline 75 mL/h She was admitted for surgery team consult 06/03/2023 Patient lower back abscess opened spontaneously today at 2 spots, there was a lot of draining of purulent material, the area looks somewhat tender to touch with surrounding cellulitis, we will send for wound culture from her purulent discharge Case was discussed with surgery team Currently she is covered with IV vancomycin and normal saline 75 mL/h She is still tachycardic but slightly better Repeat labs from today are still pending, we will follow-up Discussed with staff as well 5. Patient seen and examined. Blood work done this morning showed WBC 7.33, hemoglobin 0.9, platelet count 404. Still has pain in the left side of her back, scheduled for I&D today 06/04. Patient seen and examined. S/p Incision and drainage left back abscess. Blood work done this morning showed WBC 5.56, hemoglobin 10, platelet count 403, sodium 141, potassium 4.3, BUN 7.6, creatinine 0.6. Back pain has improved 06/05. Patient seen and examined. No acute issues overnight labs done showed WBC 5.88, hemoglobin 10.5, platelet count 438 complaining that pain is worse today compared to yesterday. Still getting dressing change of the back 06/06. Patient seen and examined. ID recommends starting patient on oral Augmentin for 10 days. Outpatient follow-up with ID PHYSICAL EXAMINATION: GENERAL: The patient is alert and oriented x3, not in any acute distress. Well developed, well nourished. HEENT: Pupils are round and equally reacting to light. EOMI. No scleral icterus. No conjunctival pallor. Normocephalic, atraumatic. No pharyngeal erythema. No thyromegaly. CARDIOVASCULAR: S1 and S2 present. No murmurs, rubs, or gallops. PULMONARY: Chest is clear to auscultation, no wheezing or crackles. ABDOMEN: Soft, nontender, nondistended, normoactive bowel sounds. No palpable organomegaly. MUSCULOSKELETAL: Bandage over left side of back seen EXTREMITIES: No cyanosis, clubbing, or pedal edema. NEUROLOGICAL: Gross neurological examination did not reveal any focal deficits. SKIN: Surgical bandage seen on the left side of the back Dictation was produced using [employer] dictation software. please excuse any gramma tical, word or spelling errors. Patient Condition at Discharge: Fair Plan - Discharge Summary Discharge Rx Participant: No New Discharge Prescriptions: New Amoxic-Pot Clav 875-125Mg [Augmentin 875-125] 1 tab PO BID 10 Days #20 tab HYDROcodone/APAP 5-325MG [[place] 5-325] 1 tab PO Q6HR PRN 3 Days #12 tab PRN Reason: Moderate To Severe Pain (4-10) Continue Acetaminophen/Pamabrom [Midol Caplet] 1 - 2 tab PO Q6H PRN PRN Reason: Menstrual Cramps Sertraline [Zoloft] 50 mg PO HS Acetaminophen Tab [Tylenol] 1,000 mg PO Q6HR PRN PRN Reason: Fever And/ Or Pain metFORMIN HCL [Glucophage] 500 mg PO BID Discharge Medication List Acetaminophen Tab [Tylenol] 1,000 mg PO Q6HR PRN 06/01/23 [History] Acetaminophen/Pamabrom [Midol Caplet] 1 - 2 tab PO Q6H PRN 06/01/23 [History] Sertraline [Zoloft] 50 mg PO HS 06/01/23 [History] metFORMIN HCL [Glucophage] 500 mg PO BID 06/01/23 [History] Amoxic-Pot Clav 875-125Mg [Augmentin 875-125] 1 tab PO BID 10 Days #20 tab 06/07/23 [Rx] HYDROcodone/APAP 5-325MG [[place] 5-325] 1 tab PO Q6HR PRN 3 Days #12 tab 06/07/23 [Rx] Follow up Appointment(s)/Referral(s): Elidia Basilio MD [Primary Care Provider] - 1-2 days [facility] Visiting Nurse, [NON-STAFF] - As Needed Jeremy Gimenez MD [STAFF PHYSICIAN] - 1 Week Discharge Disposition: HOME WITH HOME HEALTH SERVICES
--- NOTE | 2023-06-07 12:33 | P.PN ---
Subjective Progress Note Date: 06/07/23 Principal diagnosis: Reason for follow-up is left mid back abscess Patient is a 22-year-old -[place] female with a past medical history pertinent for polycystic kidney disease and hypothyroidism, presenting to the hospital for evaluation of left mid back pain diagnosed with an abscess in this patient who is status post surgical drainage on 06/04/2023 On today's evaluation that is 06/07/2023, patient has been afebrile, patient is breathing comfortably and is currently on room air, patient denies having any significant cough no chest pain shortness of breath, patient denies nausea vomiting or diarrhea and no abdominal pain, The patient pain to the left mid back area has slightly decreased in intensity. No new labs were obtained today cultures have been negative for MRSA resistant pathogen Objective - Vital Signs Vital signs: Vital Signs Temp 98.2 F 06/07/23 07:33 Pulse 96 06/07/23 08:31 Resp 16 06/07/23 08:31 BP 117/68 06/07/23 07:33 Pulse Ox 97 06/07/23 07:33 FiO2 Intake & Output 06/06/23 06/07/23 06/07/23 18:59 06:59 18:59 Other: Voiding Method Toilet # Voids 1 1 - Exam GENERAL DESCRIPTION: Young female lying in bed in no distress RESPIRATORY SYSTEM: Unlabored breathing , decreased breath sounds at bases ABDOMEN: Soft , no tenderness EXTREMITIES: No edema feet - Labs CBC & Chem 7: 06/06/23 04:54 06/06/23 04:54 Labs: Abnormal Lab Results - Last 24 Hours (Table) 06/06/23 06/06/23 Range/Units 11:41 19:58 POC Glucose (mg/dL) 119 H 119 H (70-110) mg/dL Microbiology - Last 24 Hours (Table) 06/01/23 20:01 Blood Culture - Final Blood 06/01/23 19:30 Blood Culture - Final Blood Assessment and Plan (1) Back abscess Current Visit: Yes Status: Acute Code(s): L02.212 - CUTANEOUS ABSCESS OF BACK [ANY PART, EXCEPT BUTTOCK] SNOMED Code(s): 184825133 (2) Cellulitis of back Current Visit: Yes Status: Acute Code(s): L03.312 - CELLULITIS OF BACK [ANY PART EXCEPT BUTTOCK] SNOMED Code(s): 008961254 Plan: 1patient presented hospital with increasing pain drainage from the left mid b ack area concerning for possible abscess as there was evidence of purulent drainage likely from gram-positive skin roland such as Staph aureus question of MRSA 2-patient is status post surgical drainage and deep culture which are currently pending 3-patient to continue local wound care with Aquacel packing of the wound to change every 48 hours as no MRSA in the culture we will suggest 10-day course of oral Augmentin on discharge prescription sent to the pharmacy and discussed with admitting team Dictation was produced using [employer] dictation software. please excuse any grammatical, word or spelling errors. Time with Patient: Less than 30
[2023-06-07] MEDS: HYDROcodone/APAP 5-325MG 1 EACH TAB PO PRN (13:22)
--- NOTE | 2023-06-07 13:43 | P.PN ---
Subjective Progress Note Date: 06/07/23 CHIEF COMPLAINT: Left back abscess HISTORY OF PRESENT ILLNESS: Patient is status post incision and drainage of left back abscess. Abscess is still draining. Packing is in place and it was changed yesterday. She has showered. She reports improvement in her pain. Afebrile. Denies any nausea or vomiting. PHYSICAL EXAM: VITAL SIGNS: Reviewed. GENERAL: Well-developed in no acute distress. Skin: Left back abscess with packing in place. Area is softer. ASSESSMENT: 1. Left upper back abscess status post incision and drainage PLAN: -Patient can be discharge from surgical standpoint -Continue local wound care -Consult case management for home care to arrange wound care -Discharge antibiotics per ID service Physician Tamper Operator note has been reviewed by physician. Signing provider agrees with the documented findings, assessment, and plan of care. I have personally seen and examined the patient, reviewed the PSYCH SPECIALIST /PAs history, exam and MDM and agree with the assessment and plan as written. Based on total visit time, I have performed more than 50% of the visit. As above: Patient doing well today. Pain is less. She showered earlier. Continue local wound care. May discharge from our point of view. Objective - Vital Signs Vital signs: Vital Signs Temp 98.2 F 06/07/23 07:33 Pulse 96 06/07/23 08:31 Resp 16 06/07/23 08:31 BP 117/68 06/07/23 07:33 Pulse Ox 97 06/07/23 07:33 FiO2 Intake & Output 06/06/23 06/07/23 06/07/23 18:59 06:59 18:59 Other: Voiding Method Toilet # Voids 1 1 - Labs CBC & Chem 7: 06/06/23 04:54 06/06/23 04:54 Labs: Abnormal Lab Results - Last 24 Hours (Table) 06/06/23 Range/Units 19:58 POC Glucose (mg/dL) 119 H (70-110) mg/dL Microbiology - Last 24 Hours (Table) 06/01/23 20:01 Blood Culture - Final Blood 06/01/23 19:30 Blood Culture - Final Blood
[2023-06-07 16:39] LABS: Glucose,Whole Blood 107 mg/dL (70-110)
[2023-06-07 20:36] LABS: Glucose,Whole Blood 117 mg/dL (70-110)
[2023-06-08 05:34] LABS: Glucose,Whole Blood 108 mg/dL (70-110)
[2023-06-08] MEDS: VANCOMYCIN TROUGH DUE 1 EACH MISC MISCELLANE ONE (06:42)
[2023-06-08 06:47] LABS: African American GFR (CKD) >90 (>60 ml/min/1.73 sqM); Non-African American GFR(CKD) >90 (>60 ml/min/1.73 sqM)
[2023-06-08 08:25] VITALS: BMI 53.9
[2023-06-08] MEDS: AMOXIC-POT CLAV 875-125MG 1 EACH TAB PO STA (09:38)
[2023-06-08 11:57] LABS: Glucose,Whole Blood 104 mg/dL (70-110)
--- NOTE | 2023-06-08 13:25 | P.PN ---
Subjective Progress Note Date: 06/08/23 CHIEF COMPLAINT: Left back abscess HISTORY OF PRESENT ILLNESS: Patient is status post incision and drainage of left back abscess. Abscess is still draining. Packing is in place and it was changed yesterday. She has showered. She reports improvement in her pain. Afebrile. PHYSICAL EXAM: VITAL SIGNS: Reviewed. GENERAL: Well-developed in no acute distress. Skin: Left back abscess with packing in place. Area is softer. ASSESSMENT: 1. Left upper back abscess status post incision and drainage PLAN: -Patient can be discharge from surgical standpoint -Continue local wound care -manager pathology arranging home care -Discharge antibiotics per ID service Physician Speech Clinician note has been reviewed by physician. Signing provider agrees with the documented findings, assessment, and plan of care. Objective - Vital Signs Vital signs: Vital Signs Temp 98.0 F 06/08/23 07:29 Pulse 92 06/08/23 07:29 Resp 15 06/08/23 07:29 BP 119/83 06/08/23 07:29 Pulse Ox 98 06/08/23 07:29 FiO2 Intake & Output 06/07/23 06/08/23 06/08/23 18:59 06:59 18:59 Weight 133.81 kg Other: Voiding Method Toilet # Voids 3 1 - Labs CBC & Chem 7: 06/06/23 04:54 06/08/23 05:13 Labs: Abnormal Lab Results - Last 24 Hours (Table) 06/07/23 Range/Units 20:34 POC Glucose (mg/dL) 117 H (70-110) mg/dL Microbiology - Last 24 Hours (Table) 06/03/23 11:46 Anaerobic Culture - Preliminary Back Anaerobic Gram Positive Cocci
[2023-06-08 13:52] VITALS: BP 91/62; PULSE 90; RESP 18; TEMP 98.2
--- NOTE | 2023-06-08 15:09 | P.PN ---
Subjective Progress Note Date: 06/08/23 Principal diagnosis: Reason for follow-up is left mid back abscess Patient is a 22-year-old -[place] female with a past medical history pertinent for polycystic kidney disease and hypothyroidism, presenting to the hospital for evaluation of left mid back pain diagnosed with an abscess in this patient who is status post surgical drainage on 06/04/2023 On today's evaluation that is 06/08/2023,the patient denies any fever or any chills, patient is breathing comfortably on room air, the patient denies chest pain shortness of breath and no significant cough, patient denies abdominal pain, no nausea vomiting did have some diarrhea pain to the mid back area controlled. Patient did have a creatinine 0.71 white blood open 17.5 culture with anaerobic gram-positive cocci Objective - Vital Signs Vital signs: Vital Signs Temp 98.0 F 06/08/23 07:29 Pulse 92 06/08/23 07:29 Resp 15 06/08/23 07:29 BP 119/83 06/08/23 07:29 Pulse Ox 98 06/08/23 07:29 FiO2 Intake & Output 06/07/23 06/08/23 06/08/23 18:59 06:59 18:59 Weight 133.81 kg Other: Voiding Method Toilet # Voids 3 1 - Exam GENERAL DESCRIPTION: Young female lying in bed in no distress RESPIRATORY SYSTEM: Unlabored breathing , decreased breath sounds at bases ABDOMEN: Soft , no tenderness EXTREMITIES: No edema feet - Labs CBC & Chem 7: 06/06/23 04:54 06/08/23 05:13 Labs: Abnormal Lab Results - Last 24 Hours (Table) 06/07/23 Range/Units 20:34 POC Glucose (mg/dL) 117 H (70-110) mg/dL Assessment and Plan (1) Back abscess Status: Acute Code(s): L02.212 - CUTANEOUS ABSCESS OF BACK [ANY PART, EXCEPT BUTTOCK] SNOMED Code(s): 676232836 (2) Cellulitis of back Status: Acute Code(s): L03.312 - CELLULITIS OF BACK [ANY PART EXCEPT BUTTOCK] SNOMED Code(s): 811387585 Plan: 1patient presented hospital with increasing pain drainage from the left mid back area concerning for possible abscess as there was evidence of purulent drainage likely from gram-positive skin roland such as Staph aureus question of MRSA 2-patient is status post surgical drainage culture growing anaerobic gram- positive cocci 3-antibiotic has been switched to oral Augmentin prescription sent to the pharmacy local care with Aquacel silver dressing advised to increase her probiotic and yogurt intake that will help with the diarrhea Dictation was produced using [employer] dictation software. please excuse any grammatical, word or spelling errors. Time with Patient: Less than 30
== END 2023-06-08 14:52 | disposition home health service (06) | DRG 383 ==
LOC: EC 18:39 → 5NMEDONC 21:29 → 4SSUR 06-02 09:27
PROVIDERS: ADMIT Hospitalist; ATTEND Hospitalist
PROC: 0W9 Anatomical Regions, General, Drainage (ICD-10-PCS; principal; 2023-06-04 11:25)
DX: L02.212 Cutaneous abscess of back [any part, except buttock and flank] (principal); E66.9 Obesity, unspecified; L03.312 Cellulitis of back [any part except buttock and flank]; E28.2 Polycystic ovarian syndrome; F32.A Depression, unspecified; F41.9 Anxiety disorder, unspecified; E07.9 Disorder of thyroid, unspecified; Z68.43 Body mass index [BMI] 50.0-59.9, adult; N28.9 Disorder of kidney and ureter, unspecified; R73.03 Prediabetes; E03.9 Hypothyroidism, unspecified; Q61.3 Polycystic kidney, unspecified; L02.213 Cutaneous abscess of chest wall; Z88.6 Allergy status to analgesic agent; Z79.84 Long term (current) use of oral hypoglycemic drugs; R00.0 Tachycardia, unspecified
CPT/HCPCS: 36415; 74177; 80048; 80053; 80202; 81025; 82565; 83036; 83605; 83735; 84100; 84703; 85025; 85027; 87040; 87070; 87075; 87205; 96361; 96365; 96366; 96367; 96375; 96376; 99285